=== PATIENT | female | born 1985 | race Caucasian/White ===

== ENCOUNTER 2017-11-23 20:33 | Emergency (ER) | payer OTHER ==
--- NOTE | 2017-11-23 21:57 | ED ---
Dizziness HPI - General Chief Complaint: Dizziness Stated Complaint: Dizzy/fell knee injury Time Seen by Provider: 11/23/17 21:29 Source: patient Mode of arrival: ambulatory Limitations: no limitations - History of Present Illness Initial Comments: This patient is 32-year-old woman who presents to be evaluated for which is describing as dizziness. The symptoms have been going on for well over 2 years. She states that symptoms are intermittent. She has not noticed any correlation with any particular activity. She states that she will feel off balance. She also will have intermittent nausea and vomiting. Patient denies any headache or neurologic symptoms. She states she was seen here about 2 years ago for this and was unable to have a diagnosis for the problem. She has not followed up. MD Complaint: dizziness -: year(s) Timing: intermittent Description: off-balance History of Same: Yes History of Trauma: No Severity: moderate Improves With: nothing Worsens With: nothing Associated Symptoms: denies other symptoms - Related Data Home Medications Medication Instructions Recorded Confirmed Loratadine [Claritin] 10 mg PO DAILY PRN 11/23/17 11/23/17 Allergies Allergy/AdvReac Type Severity Reaction Status Date / Time No Known Allergies Allergy Verified 11/23/17 21:54 Review of Systems ROS Statement: Those systems with pertinent positive or pertinent negative responses have been documented in the HPI. ROS Other: All systems not noted in ROS Statement are negative. Constitutional: Denies: fever, chills, weakness Eyes: Denies: vision change ENT: Denies: ear pain, hearing loss, congestion Respiratory: Denies: cough, dyspnea Cardiovascular: Denies: chest pain, palpitations, dyspnea on exertion, edema, syncope Gastrointestinal: Reports: nausea. Denies: abdominal pain, vomiting, diarrhea, melena, hematochezia Genitourinary: Denies: dysuria, hematuria Musculoskeletal: Denies: back pain Skin: Denies: rash Neurological: Denies: headache, weakness, numbness, abnormal gait Past Medical History Past Medical History: No Reported History History of Any Multi-Drug Resistant Organisms: None Reported Past Surgical History: No Surgical Hx Reported Past Psychological History: No Psychological Hx Reported Smoking Status: Never smoker Past Alcohol Use History: None Reported Past Drug Use History: None Reported General Exam Limitations: no limitations General appearance: alert, in no apparent distress Head exam: Present: atraumatic, normocephalic Eye exam: Present: normal appearance, PERRL, EOMI. Absent: scleral icterus, conjunctival injection, nystagmus ENT exam: Present: normal oropharynx Neck exam: Present: normal inspection Respiratory exam: Present: normal lung sounds bilaterally. Absent: respiratory distress, wheezes, rales, rhonchi, stridor Cardiovascular Exam: Present: regular rate, normal rhythm, normal heart sounds. Absent: systolic murmur, diastolic murmur, rubs, gallop GI/Abdominal exam: Present: soft. Absent: distended, tenderness, guarding, rebound, rigid, mass Extremities exam: Present: normal inspection, normal capillary refill. Absent: pedal edema, calf tenderness Neurological exam: Present: alert, oriented X3, CN II-XII intact. Absent: motor sensory deficit Skin exam: Present: warm, dry, intact, normal color. Absent: rash Course Vital Signs 11/23/17 20:42 Temperature 98.2 F Pulse Rate 88 Respiratory 16 Rate Blood Pressure 133/84 O2 Sat by Pulse 99 Oximetry EKG Findings - EKG Comments: EKG Findings:: Short CT interval - EKG Results: EKG: interpreted by ERMD, sinus rhythm (Rate 81 bpm), normal axis, normal ST/T Medical Decision Making - Lab Data Result diagrams: 11/23/17 23:00 11/23/17 23:00 Lab Results 11/23/17 11/23/17 11/23/17 Range/Units 23:00 23:00 23:20 WBC 10.6 (3.8-10.6) k/uL RBC 4.64 (3.80-5.40) m/uL Hgb 10.9 L (11.4-16.0) gm/dL Hct 35.4 (34.0-46.0) % MCV 76.2 L (80.0-100.0) fL MCH 23.4 L (25.0-35.0) pg MCHC 30.8 L (31.0-37.0) g/dL RDW 15.0 (11.5-15.5) % Plt Count 491 H (150-450) k/uL Neutrophils % 67 % Lymphocytes % 24 % Monocytes % 5 % Eosinophils % 3 % Basophils % 1 % Neutrophils # 7.0 (1.3-7.7) k/uL Lymphocytes # 2.5 (1.0-4.8) k/uL Monocytes # 0.5 (0-1.0) k/uL Eosinophils # 0.3 (0-0.7) k/uL Basophils # 0.1 (0-0.2) k/uL Hypochromasia Moderate Microcytosis Slight Sodium 139 (137-145) mmol/L Potassium 4.8 (3.5-5.1) mmol/L Chloride 105 (98-107) mmol/L Carbon Dioxide 24 (22-30) mmol/L Anion Gap 10 mmol/L BUN 12 (7-17) mg/dL Creatinine 0.59 (0.52-1.04) mg/dL Est GFR (CKD-EPI)AfAm >90 (>60 ml/min/1.73 sqM) Est GFR (CKD-EPI)NonAf >90 (>60 ml/min/1.73 sqM) Glucose 89 (74-99) mg/dL Calcium 9.9 (8.4-10.2) mg/dL Magnesium 1.9 (1.6-2.3) mg/dL Total Bilirubin 0.5 (0.2-1.3) mg/dL AST 30 (14-36) U/L ALT 17 (9-52) U/L Alkaline Phosphatase 66 (38-126) U/L Total Protein 8.1 (6.3-8.2) g/dL Albumin 4.2 (3.5-5.0) g/dL Urine Color Urine Appearance (Clear) Urine pH (5.0-8.0) Ur Specific [place] (1.001-1.035) Urine Protein (Negative) Urine Glucose (UA) (Negative) Urine Ketones (Negative) Urine Blood (Negative) Urine Nitrite (Negative) Urine Bilirubin (Negative) Urine Urobilinogen (<2.0) mg/dL Ur Leukocyte Esterase (Negative) Urine RBC (0-5) /hpf Urine WBC (0-5) /hpf Ur Squamous Epith Cells (0-4) /hpf Urine Bacteria (None) /hpf Urine Mucus (None) /hpf Urine HCG, Qual Not Detected (Not Detectd) 11/23/17 Range/Units 23:20 WBC (3.8-10.6) k/uL RBC (3.80-5.40) m/uL Hgb (11.4-16.0) gm/dL Hct (34.0-46.0) % MCV (80.0-100.0) fL MCH (25.0-35.0) pg MCHC (31.0-37.0) g/dL RDW (11.5-15.5) % Plt Count (150-450) k/uL Neutrophils % % Lymphocytes % % Monocytes % % Eosinophils % % Basophils % % Neutrophils # (1.3-7.7) k/uL Lymphocytes # (1.0-4.8) k/uL Monocytes # (0-1.0) k/uL Eosinophils # (0-0.7) k/uL Basophils # (0-0.2) k/uL Hypochromasia Microcytosis Sodium (137-145) mmol/L Potassium (3.5-5.1) mmol/L Chloride (98-107) mmol/L Carbon Dioxide (22-30) mmol/L Anion Gap mmol/L BUN (7-17) mg/dL Creatinine (0.52-1.04) mg/dL Est GFR (CKD-EPI)AfAm (>60 ml/min/1.73 sqM) Est GFR (CKD-EPI)NonAf (>60 ml/min/1.73 sqM) Glucose (74-99) mg/dL Calcium (8.4-10.2) mg/dL Magnesium (1.6-2.3) mg/dL Total Bilirubin (0.2-1.3) mg/dL AST (14-36) U/L ALT (9-52) U/L Alkaline Phosphatase (38-126) U/L Total Protein (6.3-8.2) g/dL Albumin (3.5-5.0) g/dL Urine Color Light Yellow Urine Appearance Cloudy H (Clear) Urine pH 5.5 (5.0-8.0) Ur Specific [place] 1.008 (1.001-1.035) Urine Protein Negative (Negative) Urine Glucose (UA) Negative (Negative) Urine Ketones Negative (Negative) Urine Blood Negative (Negative) Urine Nitrite Negative (Negative) Urine Bilirubin Negative (Negative) Urine Urobilinogen <2.0 (<2.0) mg/dL Ur Leukocyte Esterase Negative (Negative) Urine RBC 1 (0-5) /hpf Urine WBC 1 (0-5) /hpf Ur Squamous Epith Cells 4 (0-4) /hpf Urine Bacteria Occasional H (None) /hpf Urine Mucus Rare H (None) /hpf Urine HCG, Qual (Not Detectd) Disposition Clinical Impression: Dizziness Disposition: HOME SELF-CARE Condition: Good Instructions: Dizziness (ED) Is patient prescribed a controlled substance at d/c from ED?: No Referrals: None,Stated [Primary Care Provider] - 1-2 days Aida Thornton MD [REFERRING] - 1-2 days
[2017-11-23 23:13] LABS: Basophils # (A) 0.1 k/uL (0-0.2); Basophils % (A) 1 %; Eosinophils # (A) 0.3 k/uL (0-0.7); Eosinophils % (A) 3 %; HCT 35.4 % (34.0-46.0); HGB 10.9 gm/dL (11.4-16.0); Hypochromasia Moderate; Lymphocytes # (A) 2.5 k/uL (1.0-4.8); Lymphocytes % (A) 24 %; MCH 23.4 pg (25.0-35.0); MCHC 30.8 g/dL (31.0-37.0); MCV 76.2 fL (80.0-100.0); Mean Platelet Volume 8.8; Microcytosis Slight; Monocytes # (A) 0.5 k/uL (0-1.0); Monocytes % (A) 5 %; Neutrophils % (A) 67 %; Platelet Count 491 k/uL (150-450); RBC 4.64 m/uL (3.80-5.40); WBC 10.6 k/uL (3.8-10.6)
[2017-11-23 23:39] LABS: Albumin 4.2 g/dL (3.5-5.0); Anion Gap 10 mmol/L; Blood Urea Nitrogen 12 mg/dL (7-17); Calcium 9.9 mg/dL (8.4-10.2); Carbon Dioxide 24 mmol/L (22-30); Chloride 105 mmol/L (98-107); Glucose 89 mg/dL (74-99); Magnesium 1.9 mg/dL (1.6-2.3); Sodium 139 mmol/L (137-145); Total Bilirubin 0.5 mg/dL (0.2-1.3); Total Protein 8.1 g/dL (6.3-8.2)
[2017-11-24 00:01] LABS: ALT 17 U/L (9-52); AST 30 U/L (14-36); Alkaline Phosphatase 66 U/L (38-126); Potassium 4.8 mmol/L (3.5-5.1)
[2017-11-24 00:11] LABS: Appearance,Urine Cloudy (Clear); Bacteria,Urine Occasional /hpf; Bilirubin,Urine Negative (Negative); Blood,Urine Negative (Negative); Color,Urine Light Yellow; Glucose,Urine (UA) Negative (Negative); Ketones,Urine Negative (Negative); Leukocyte Esterase,Urine Negative (Negative); Mucus,Urine Rare /hpf; Nitrite,Urine Negative (Negative); PH, Urine 5.5 (5.0-8.0); Protein,Urine Negative (Negative); RBC,Urine 1 /hpf (0-5); Specific Gravity,Urine 1.008 (1.001-1.035); Squamous Epithelial Cell,Urine 4 /hpf (0-4); Urobilinogen,Urine <2.0 mg/dL (<2.0); WBC,Urine 1 /hpf (0-5)
[2017-11-24 01:58] VITALS: BP 131/92; PULSE 72; RESP 18; TEMP 98.6
== END 2017-11-24 01:52 | disposition home or self-care (01) ==
LOC: EC 20:33
DX: R42 Dizziness and giddiness (principal); R26.89 Other abnormalities of gait and mobility; R11.2 Nausea with vomiting, unspecified
CPT/HCPCS: 36415; 80053; 81001; 81025; 83735; 85025; 93005; 99284

== ENCOUNTER → 2018-08-30 | Outpatient (CLI) | payer OTHER ==
--- NOTE | 2018-08-30 13:44 | MM ---
Reason for exam: clinical finding. History: Family history of breast cancer in mother at age 40. Took hormonal contraceptives beginning at age 17. Physical Findings: Nurse Summary: 1.5cm nodule in the right breast at 11 o'clock (nurse caden). MG Diagnostic Mammo w CAD JORGE Bilateral CC and MLO view(s) were taken. XCCL view(s) were taken of the right breast. The breast tissue is heterogeneously dense. This may lower the sensitivity of mammography. Finding: There is a 30 mm microlobulated oval mass located 8-9 cm from the nipple in the upper outer quadrant, posterior position of the right breast. These results were verbally communicated with the patient and result sheet given to the patient on 08/30/18. ASSESSMENT: Incomplete: need additional imaging evaluation, BI-RAD 0 RECOMMENDATION: Ultrasound of the right breast.
--- NOTE | 2018-08-30 13:47 | USB ---
Reason for exam: additional evaluation requested from abnormal screening. History: Family history of breast cancer in mother at age 40. Took hormonal contraceptives beginning at age 17. US Breast Workup Limited RT Right limited breast ultrasound including focal area of concern, retroareolar and axilla demonstrates a 5 x 4 x 6mm oval, hypoechoic lesion at 10 o'clock, a 23 x 16 x 29cm hypoechoic lesion at 11 o'clock BB for which a biopsy is recommended, a 8 x 5 x 7mm oval, hypochoic lesion at 12 o'clock and a 7 x 2 x 5mm oval, hypoechoic lesion at 12 o'clock. Advise sampling of largest lesion. These results were verbally communicated with the patient and result sheet given to the patient on 08/30/18. ASSESSMENT: Suspicious, BI-RAD 4 RECOMMENDATION: Ultrasound core biopsy of the right breast. Called Dr. Herr with mammographic findings and has scheduled an appointment for the patient for 09/25/18 at 3:[address] Landin. Biopsy scheduled for 09/19/18 at 8:00. PRELIMINARY REPORT CALLED AND FAXED TO DR. LANDIN ON 08/30/18.
== END | disposition home or self-care (01) ==
LOC: RADMAMWWP 10:40
PROVIDERS: ATTEND Family Medicine
DX: N63.10 Unspecified lump in the right breast, unspecified quadrant (principal); Z80.3 Family history of malignant neoplasm of breast
CPT/HCPCS: 77066

== ENCOUNTER → 2018-09-08 | Outpatient (CLI) | payer OTHER ==
[2018-09-08 15:50] VITALS: BP 105/72; PULSE 91; RESP 16; TEMP 98.3; BMI 22.3
--- NOTE | 2018-09-08 16:44 | P.GSHP ---
History of Present Illness H&P Date: 09/08/18 Chief Complaint: ultrasound change in right breast Kenia is a 33-year-old white female who presents for evaluation of a lump in her right breast. She states she noted a lump several months ago and there was some stinging associated with it. She subsequently underwent a bilateral mammogram and ultrasound of the right breast. The bilateral mammogram revealed a 30 mm microlobulated mass at the 8-9 cm from the nipple in the upper outer quadrant of the right breast. Ultrasound of the right breast then revealed several lesions the largest of which was 23 x 16 cm at 11:00. Ultrasound-guided core biopsy was recommended. Patient drinks large amounts of coffee and or soda which is caffeinated, the patient does not smoke and is not exposed to secondhand smoke, she eats chocolate rarely Family history: Mother: cancer of her uterus Hormonal History: menarche: 14 , breast fed:; no, first born at 20 BCP:1 year hormones: none periods regular Surgical history: none Medical History: none Social Hsitory: smoke: none alcohol: none drugs: none - Constitutional Constitutional: Denies chills, Denies fever - EENT Eyes: denies blurred vision, denies pain Ears: deny: decreased hearing, tinnitus Ears, nose, mouth and throat: Denies headache, Denies sore throat - Breasts Breasts: bilateral: as per HPI - Cardiovascular Cardiovascular: Denies chest pain, Denies shortness of breath - Respiratory Respiratory: Denies cough, Denies 7 - Gastrointestinal Gastrointestinal: Denies abdominal pain, Denies diarrhea, Denies nausea, Denies vomiting - Genitourinary (Female) Genitourinary: Denies dysuria, Denies hematuria - Menstruation Menstruation: Reports period normal - Musculoskeletal Musculoskeletal: Denies myalgias - Integumentary Integumentary: Denies pruritus, Denies rash - Neurological Neurological: Denies numbness, Denies weakness - Psychiatric Psychiatric: Denies anxiety, Denies depression - Endocrine Endocrine: Denies fatigue, Denies weight change - Hematologic/Lymphatic Comment: none - Allergic/Immunologic Allergic/Immunologic: Reports seasonal allergies Past Medical History Past Medical History: No Reported History History of Any Multi-Drug Resistant Organisms: None Reported Past Surgical History: No Surgical Hx Reported Past Psychological History: No Psychological Hx Reported Smoking Status: Never smoker Past Alcohol Use History: None Reported Past Drug Use History: None Reported Medications and Allergies Home Medications Medication Instructions Recorded Confirmed Type No Known Home Medications 09/08/18 09/08/18 History Allergies Allergy/AdvReac Type Severity Reaction Status Date / Time No Known Allergies Allergy Verified 09/08/18 15:50 Surgical - Exam Vital Signs Temp Pulse Resp BP Pulse Ox 98.3 F 91 16 105/72 98 09/08/18 15:46 09/08/18 15:46 09/08/18 15:46 09/08/18 15:46 09/08/18 15:46 BMI 22.3 - General well developed, well nourished, no distress - Eyes normal ocular movement - ENT no hearing loss, no congestion - Neck no masses, trachea midline - Respiratory normal respiratory effort, clear to auscultation - Cardiovascular Rhythm: regular Heart Sounds: normal: S1, S2 - Abdomen Abdomen: soft, non tender, no guarding, no rigid, no rebound - Integumentary normal turgor - Neurologic no disoriented, no combative - Musculoskeletal normal gait, normal posture - Psychiatric oriented to time, oriented to person, oriented to place, speech is normal, memory intact breast exam: right breast: Multi-positional exam reveals approximately a 2-1/2 cm nodule in the right lateral breast at approximately 9:00 Date axilla: No adenopathy of concern Left breast: Multi-positional exam fibrocystic changes, no dominant masses or notches of concern Left axilla: No adenopathy of concern Results Mammogram and ultrasound reports reviewed Assessment and Plan Assessment: Impression: 1. Abnormal mammogram right breast 2. Abnormal ultrasound right breast 3. Palpable mass right breast 4. Fibrocystic breast changes 5. Family history of cancer Plan: 1. Core biopsy ultrasound abnormality right breast 2. Follow-up after core biopsy Cc: Dr. Hunter
== END ==
LOC: WWCWWP 15:40
PROVIDERS: ATTEND Surgery
DX: Z53.9 Procedure and treatment not carried out, unspecified reason (principal)

== ENCOUNTER → 2018-09-19 | Day surgery (SDC) | payer OTHER ==
[2018-09-19 07:27] VITALS: RESP 16; BMI 24.3
[2018-09-19 08:32] VITALS: BP 116/82; PULSE 70; TEMP 97.9
--- NOTE | 2018-09-19 09:01 | USB ---
EXAMINATION TYPE: US biopsy breast VAD RT DATE OF EXAM: 09/19/2018 CLINICAL HISTORY: R92.8 Abnormal Mammogram. TECHNIQUE: Ultrasound guided core biopsy of right breast palpable abnormality at 11:00 position. COMPARISON: Exams dated 08/30/2018 FINDINGS: The procedure of ultrasound guided core biopsy was explained to the patient. Benefits, alt ernatives, and risks were discussed. An informed consent was then obtained. Preprocedural timeout w as performed. The patient was placed in supine positioning for imaging and for the procedure. The overlying skin w as prepped and draped in usual sterile fashion. 10 cc of 1% lidocaine was used as anesthetic into the skin and subcutaneous tissue up to a palpable 2.3 x 1.6 x 2.9 cm mass at the 11:00 position in the r ight breast. Under ultrasound guidance, a 12-gauge vacuum assisted biopsy gun device was used to obtain 5 core anny ples. Following this, a ribbon-shaped biopsy marker was left in mass. No postprocedural mammogram wa s utilized in this patient as the biopsy marker was seen on real-time imaging placed within the biops ied mass at the 11:00 position in the right breast. The patient tolerated the procedure well without any immediate complication. The patient was kept in the radiology department for short stay after the procedure and then discharged home in stable condi tion. IMPRESSION: Successful, uncomplicated ultrasound guided core biopsy of a palpable 2.3 x 1.6 x 2.9 cm mass at the 11:00 position in the right breast, full pathology results to follow. Of note there are 3 other smaller masses seen on the prior ultrasound of 08/30/2018 for which recommendation will be made on radiologic/pathologic correlation. The remaining masses are subcentimeter.
== END | disposition home or self-care (01) ==
LOC: RADUSWWP 06:46
PROVIDERS: ATTEND Surgery
DX: D24.1 Benign neoplasm of right breast (principal)
CPT/HCPCS: 88305; 19083; A4648; J2001

== ENCOUNTER → 2018-09-25 | Outpatient (CLI) | payer OTHER ==
[2018-09-25 16:11] VITALS: BP 105/73; PULSE 90; RESP 16; TEMP 98.3; BMI 24.5
--- NOTE | 2018-09-25 16:36 | P.PN ---
Subjective Progress Note Date: 09/25/18 Kenia is a 33-year-old white female who presents for evaluation of a lump in her right breast. She states she noted a lump several months ago and there was some stinging associated with it. She subsequently underwent a bilateral mammogram and ultrasound of the right breast. The bilateral mammogram revealed a 30 mm microlobulated mass at the 8-9 cm from the nipple in the upper outer quadrant of the right breast. Ultrasound of the right breast then revealed several lesions the largest of which was 2.3 x 1.6 cm at 11:00. Ultrasound- guided core biopsy was recommended. Pathology was consistent with a Patient drinks large amounts of coffee and or soda which is caffeinated, the patient does not smoke and is not exposed to secondhand smoke, she eats chocolate rarely Family history: Mother: cancer of her uterus Hormonal History: menarche: 14 , breast fed:; no, first born at 20 BCP:1 year hormones: none periods regular Surgical history: none Medical History: none Social Hsitory: smoke: none alcohol: none drugs: none - Constitutional Constitutional: Denies chills, Denies fever - EENT Eyes: denies blurred vision, denies pain Ears: deny: decreased hearing, tinnitus Ears, nose, mouth and throat: Denies headache, Denies sore throat - Breasts Breasts: bilateral: as per HPI - Cardiovascular Cardiovascular: Denies chest pain, Denies shortness of breath - Respiratory Respiratory: Denies cough, Denies 7 - Gastrointestinal Gastrointestinal: Denies abdominal pain, Denies diarrhea, Denies nausea, Denies vomiting - Genitourinary (Female) Genitourinary: Denies dysuria, Denies hematuria - Menstruation Menstruation: Reports period normal - Musculoskeletal Musculoskeletal: Denies myalgias - Integumentary Integumentary: Denies pruritus, Denies rash - Neurological Neurological: Denies numbness, Denies weakness - Psychiatric Psychiatric: Denies anxiety, Denies depression - Endocrine Endocrine: Denies fatigue, Denies weight change - Hematologic/Lymphatic Comment: none - Allergic/Immunologic Allergic/Immunologic: Reports seasonal allergies Past Medical History Past Medical History: No Reported History History of Any Multi-Drug Resistant Organisms: None Reported Past Surgical History: No Surgical Hx Reported Past Psychological History: No Psychological Hx Reported Smoking Status: Never smoker Past Alcohol Use History: None Reported Past Drug Use History: None Reported Objective - Vital Signs Vital signs: Vital Signs Temp 98.3 F 09/25/18 15:58 Pulse 90 09/25/18 15:58 Resp 16 09/25/18 15:58 BP 105/73 09/25/18 15:58 Pulse Ox 100 09/25/18 15:58 Intake & Output 09/24/18 09/25/18 09/25/18 18:59 06:59 18:59 Weight 64.864 kg - Constitutional General appearance: Present: average body habitus - EENT Eyes: Present: EOMI ENT: Present: hearing grossly normal - Neck Neck: Present: normal ROM - Respiratory Respiratory: bilateral: CTA - Cardiovascular Rhythm: regular Heart sounds: normal: S1, S2 - Integumentary Integumentary: Present: normal turgor - Musculoskeletal Musculoskeletal: Present: gait normal - Psychiatric Psychiatric: Present: A&O x's 3, appropriate affect, intact judgment & insight - Additional findings Additional findings: Breast biopsy site: No evidence of infection Assessment and Plan Assessment: Impression: 1. 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 Abnormal mammogram and ultrasound of the right breast 3. Mother history of uterine cancer Plan: 1. Excisional biopsy of palpable lesion in the right breast Risk and benefits of procedure discussed with the patient in the supra be scheduled in the near future she wishes to proceed. Cc: Dr. Hunter
== END | disposition home or self-care (01) ==
LOC: WWCWWP 15:33
PROVIDERS: ATTEND Surgery
DX: Z53.9 Procedure and treatment not carried out, unspecified reason (principal)

== ENCOUNTER → 2018-10-26 | Outpatient (CLI) | payer OTHER ==
[2018-10-26 14:56] VITALS: BP 131/85; PULSE 77; RESP 18; TEMP 97.7; BMI 24.0
--- NOTE | 2018-10-26 15:15 | P.PN ---
Subjective Progress Note Date: 10/26/18 Principal diagnosis: mass right breast Kenia is a 33-year-old white female who presents for evaluation of a lump in her right breast. She states she noted a lump several months ago and there was some stinging associated with it. She subsequently underwent a bilateral mammogram and ultrasound of the right breast. The bilateral mammogram revealed a 30 mm microlobulated mass at the 8-9 cm from the nipple in the upper outer quadrant of the right breast. Ultrasound of the right breast then revealed several lesions the largest of which was 23 x 16 cm at 11:00. Ultrasound-guided core biopsy was recommended. Patient drinks large amounts of coffee and or soda which is caffeinated, the patient does not smoke and is not exposed to secondhand smoke, she eats chocolate rarely. An ultrasound core biopsy was done on 09-19-18. Pathology was benign fibroepithelial lesion. The patient states the area is growing. It is also painful at times. Family history: Mother: cancer of her uterus Hormonal History: menarche: 14 , breast fed:; no, first born at 20 BCP:1 year hormones: none periods regular Surgical history: none Medical History: none Social History: smoke: none alcohol: none drugs: none - Constitutional Constitutional: Denies chills, Denies fever - EENT Eyes: denies blurred vision, denies pain Ears: deny: decreased hearing, tinnitus Ears, nose, mouth and throat: Denies headache, Denies sore throat - Breasts Breasts: bilateral: as per HPI - Cardiovascular Cardiovascular: Denies chest pain, Denies shortness of breath - Respiratory Respiratory: Denies cough, - Gastrointestinal Gastrointestinal: Denies abdominal pain, Denies diarrhea, Denies nausea, Denies vomiting - Genitourinary (Female) Genitourinary: Denies dysuria, Denies hematuria - Menstruation Menstruation: Reports period normal - Musculoskeletal Musculoskeletal: Denies myalgias - Integumentary Integumentary: Denies pruritus, Denies rash - Neurological Neurological: Denies numbness, Denies weakness - Psychiatric Psychiatric: Denies anxiety, Denies depression - Endocrine Endocrine: Denies fatigue, Denies weight change - Hematologic/Lymphatic Comment: none - Allergic/Immunologic Allergic/Immunologic: Reports seasonal allergies Past Medical History Past Medical History: No Reported History History of Any Multi-Drug Resistant Organisms: None Reported Past Surgical History: No Surgical Hx Reported Past Psychological History: No Psychological Hx Reported Smoking Status: Never smoker Past Alcohol Use History: None Reported Past Drug Use History: None Reported Objective - Vital Signs Vital signs: Vital Signs Temp 97.7 F 10/26/18 14:52 Pulse 77 10/26/18 14:52 Resp 18 10/26/18 14:52 BP 131/85 10/26/18 14:52 Pulse Ox 99 10/26/18 14:52 Intake & Output 10/25/18 10/26/18 10/26/18 18:59 06:59 18:59 Weight 63.503 kg - Exam BMI 24 - Constitutional General appearance: Present: average body habitus - EENT Eyes: Present: EOMI ENT: Present: hearing grossly normal - Neck Neck: Present: normal ROM - Respiratory Respiratory: bilateral: CTA - Cardiovascular Rhythm: regular Heart sounds: normal: S1, S2 - Gastrointestinal General gastrointestinal: Present: soft - Integumentary Integumentary: Present: normal turgor - Musculoskeletal Musculoskeletal: Present: gait normal - Psychiatric Psychiatric: Present: A&O x's 3, appropriate affect, intact judgment & insight - Additional findings Additional findings: Right breast: Multi-positional exam a 3 cm nodule in the upper outer quadrant area, fibrocystic changes, no other dominant masses or nodules of concern particularly attention paid to the 12 o'clock position and no discrete mass noted Right axilla: No adenopathy of concern Left breast: Multi-positional exam on prior exam no dominant masses or nodules of concern Left axilla: No adenopathy of concern Assessment and Plan Assessment: Impression: 1. Mammographic abnormality right breast 2. Ultrasound abnormality right breast 3. Growing palpable mass right breast 4. Fibroepithelial lesion on core biopsy. 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 The patient's ultrasound was reviewed with Dr. Stewart. Although there are several other smaller lesions that do not appear worrisome in the right breast and the recommendation was to follow these radiographically. Depending on the results of the right breast excisional biopsy we may consider further workup of these. Plan: 1. Excision of palpable mass in the operating room and the right breast 2. Medical management of medical problems 3. Six-month ultrasound follow-up additional lesions in the right breast. Risks and benefits of the procedure were discussed with the patient and she wishes to proceed. Cc:Nemesio
== END | disposition home or self-care (01) ==
LOC: WWCWWP 14:44
PROVIDERS: ATTEND Surgery
DX: Z53.9 Procedure and treatment not carried out, unspecified reason (principal)

== ENCOUNTER 2018-10-31 13:42 | Day surgery (SDC) | payer OTHER ==
[2018-10-27 15:52] VITALS: BMI 24.3
[~2018-10-31 13:42] MED LIST: DEXAMETHASONE SOD PHOSPHATE 10 MG/ML 1 ML VIAL IV ONE; HEPARIN SODIUM,PORCINE 5,000 UNIT/ML 1 ML VIAL SQ ONE; HYDROmorphone 0.5 MG/0.5 ML SYRINGE IVP PRN; LACTATED RINGERS 1,000 ML IV SCH; LIDOCAINE 1% 20 ML VIAL (10MG/ML) FOR IV START INTRADERMA PRN; MIDAZOLAM 2 MG/2 ML VIAL IV PRN; ONDANSETRON 4 MG/2 ML VIAL IVP ONE; SCOPOLAMINE 1.5MG/72HR PATCH TRANSDERM ONE
[2018-10-31 14:15] VITALS: BP 119/76; PULSE 88; RESP 20; TEMP 97.7
== END 2018-10-31 13:51 | disposition home or self-care (01) ==
LOC: OR 13:42
PROVIDERS: ATTEND Surgery
DX: Z53.9 Procedure and treatment not carried out, unspecified reason (principal)

== ENCOUNTER 2018-11-07 13:52 | Day surgery (SDC) | payer OTHER ==
[2018-11-07] MEDS ORDERED: HYDROmorphone 0.5 MG/0.5 ML SYRINGE IVP PRN (14:09)
[2018-11-07] MEDS ORDERED: MIDAZOLAM 2 MG/2 ML VIAL IV PRN (14:09)
[2018-11-07] MEDS ORDERED: LIDOCAINE 1% 20 ML VIAL (10MG/ML) FOR IV START INTRADERMA PRN (14:09)
[2018-11-07] MEDS ORDERED: SCOPOLAMINE 1.5MG/72HR PATCH TRANSDERM ONE (14:09)
[2018-11-07] MEDS ORDERED: LACTATED RINGERS 1,000 ML IV SCH (14:09)
[2018-11-07] MEDS ORDERED: DEXAMETHASONE SOD PHOSPHATE 10 MG/ML 1 ML VIAL IV ONE (14:09)
[2018-11-07] MEDS ORDERED: ONDANSETRON 4 MG/2 ML VIAL IVP ONE (14:09)
[2018-11-07] MEDS ORDERED: SODIUM CHLORIDE 0.9% 100 ML with ceFAZolin 2,000 MG IV ONE ×2 (16:06)
[2018-11-07] MEDS ORDERED: LIDOCAINE 1% INJ 10MG/ML (20 ML MDV) SQ ONE ×2 (16:28)
[2018-11-07 17:02] VITALS: TEMP 96.8
[2018-11-07 17:42] VITALS: RESP 16
[2018-11-07 17:52] VITALS: BP 127/84; PULSE 81
--- NOTE | 2018-11-08 12:24 | P.OP ---
Date of Procedure: 11/07/18 Preoperative Diagnosis: Mass/fibroadenoma upper outer quadrant right breast Postoperative Diagnosis: Same Procedure(s) Performed: Excision of palpable mass upper outer quadrant right breast Anesthesia: INDRA Surgeon: Samanta Landin Estimated Blood Loss (ml): 3 IV fluids (ml): 400 Pathology: other (Breast mass) Condition: stable Disposition: same day Indications for Procedure: Enlarging mass right breast palpable/pain at times Operative Findings: Mass right breast upper outer quadrant 5 x 4 cm Description of Procedure: Kenia is a 33-year-old white female who presented with a palpable mass in the right breast. This is biopsy-proven fibroadenoma however it is enlarging and uncomfortable for the patient. She is therefore opted for surgical excision. The patient was taken to the operating room following induction of anesthesia the right breast was prepped and draped in a sterile fashion. An incision was made over the area of palpable abnormality and carried down through the breast tissue to the area of the lesion. Wide excision was performed. The lesion was approximately 5 x 4 cm in size, it appeared to be multilobulated. After this had been excised the wound was well irrigated. Hemostasis was attained using electrocautery device. The deep tissues were closed using 3-0 Vicryl suture. The skin was closed using 4-0 Vicryl suture and a 4-0 Monocryl. The patient tolerated the procedure in stable condition. The specimen was sent to pathology.
--- NOTE | 2018-11-08 12:26 | P.DS ---
Providers Attending physician: Samanta Landin Primary care physician: Stated None Patient Condition at Discharge: Stable Plan - Discharge Summary Discharge Rx Participant: No New Discharge Prescriptions: No Action No Known Home Medications Discharge Medication List No Known Home Medications 09/08/18 [History] Follow up Appointment(s)/Referral(s): Samanta Landin MD [STAFF PHYSICIAN] - 1 Week (please call office for follow up date/time.) Patient Instructions/Handouts: *Surgery [facility] - (Anesthesia) Discharge Instructions Outpatient Surgery, Surgical Breast Biopsy (DC) Activity/Diet/Wound Care/Special Instructions: Do not drive for 24 hours after surgery. Remove Dressing in 48 hours and then you may shower. Wear surgical bra at all times. Follow up with Dr. Landin in 1 week. Discharge Disposition: HOME SELF-CARE
== END 2018-11-07 18:09 | disposition home or self-care (01) ==
LOC: OR 13:52 → EDSTATUS 15:10 → OR 18:09
PROVIDERS: ATTEND Surgery
DX: D24.1 Benign neoplasm of right breast (principal); Z85.42 Personal history of malignant neoplasm of other parts of uterus; Z87.891 Personal history of nicotine dependence
CPT/HCPCS: 81025; 88305; 19301; J1100; J2405; J0690; J2001

== ENCOUNTER 2019-09-20 19:31 | Emergency (ER) | payer OTHER ==
[2019-09-20] MEDS ORDERED: SODIUM CHLORIDE 0.9% 1,000 ML IV STA (19:58)
[2019-09-20 20:57] LABS: Anisocytosis Slight; Basophils # (A) 0.1 k/uL (0-0.2); Basophils % (A) 0 %; Eosinophils # (A) 0.2 k/uL (0-0.7); Eosinophils % (A) 1 %; HGB 12.7 gm/dL (11.4-16.0); Hypochromasia Slight; Lymphocytes # (A) 1.4 k/uL (1.0-4.8); Lymphocytes % (A) 9 %; MCH 24.3 pg (25.0-35.0); MCHC 31.7 g/dL (31.0-37.0); MCV 76.6 fL (80.0-100.0); Mean Platelet Volume 7.5; Microcytosis Moderate; Monocytes # (A) 0.6 k/uL (0-1.0); Monocytes % (A) 4 %; Neutrophils # (A) 13.4 k/uL (1.3-7.7); Neutrophils % (A) 86 %; Platelet Count 422 k/uL (150-450); RBC 5.22 m/uL (3.80-5.40); RDW 19.5 % (11.5-15.5); WBC 15.7 k/uL (3.8-10.6)
[2019-09-20 21:06] LABS: ALT 11 U/L (4-34); AST 18 U/L (14-36); African American GFR (CKD) >90 (>60 ml/min/1.73 sqM); Albumin 3.8 g/dL (3.5-5.0); Alkaline Phosphatase 81 U/L (38-126); Amylase 49 U/L (30-110); Anion Gap 8 mmol/L; Blood Urea Nitrogen 5 mg/dL (7-17); Calcium 8.9 mg/dL (8.4-10.2); Carbon Dioxide 20 mmol/L (22-30); Chloride 109 mmol/L (98-107); Glucose 138 mg/dL (74-99); Non-African American GFR(CKD) >90 (>60 ml/min/1.73 sqM); Potassium 3.8 mmol/L (3.5-5.1); Sodium 137 mmol/L (137-145); Total Bilirubin 0.3 mg/dL (0.2-1.3); Total Protein 7.4 g/dL (6.3-8.2)
[2019-09-20 21:52] LABS: Appearance,Urine Clear (Clear); Bacteria,Urine Rare /hpf; Bilirubin,Urine Negative (Negative); Blood,Urine Large (Negative); Color,Urine Yellow; Glucose,Urine (UA) Negative (Negative); Hyaline Casts,Urine 21 /lpf (0-2); Ketones,Urine Negative (Negative); Leukocyte Esterase,Urine Trace (Negative); Mucus,Urine Rare /hpf; Nitrite,Urine Negative (Negative); PH, Urine 5.5 (5.0-8.0); Protein,Urine Trace (Negative); RBC,Urine >182 /hpf (0-5); Specific Gravity,Urine 1.016 (1.001-1.035); Squamous Epithelial Cell,Urine 1 /hpf (0-4); Urobilinogen,Urine <2.0 mg/dL (<2.0); WBC,Urine 16 /hpf (0-5)
--- NOTE | 2019-09-20 22:27 | US ---
EXAMINATION TYPE: US pelvis comp w/tv w/doppler DATE OF EXAM: 09/20/2019 COMPARISON: CT CLINICAL HISTORY: Heavy bleeding, passed tissue, on BC. Heavy bleeding x 1 day. Patient claims she passed a large clot. Patient on control. . TECHNIQUE: Transvaginal (TV). Transabdominal sonographic images of the pelvis were acquired. Transvaginal sonographic images were medically necessary to better assess the following anatomy: ovaries, endometrium. *Patient requested to try the transabdominal exam first. Date of LMP: 09/20/2019 EXAM MEASUREMENTS: Uterus: 8.5 x 6.6 x 4.8 cm Endometrial Stripe: 0.45 cm Right Ovary: 3.5 x 2.0 x 2.1 cm Left Ovary: 3.2 x 1.1 x 1.7 cm 1. Uterus: Retroverted Appears slightly heterogeneous. Slightly hypoechoic area seen fundally measurin.4 x 1.8 x 1.7 cm. Hypoechoic area seen uterus left measurin.1 x 1.2 x 1.0 cm. This area is posterior. 2. Endometrium: Measures 0.45 cm. Anechoic area seen measurin.9 x 0.9 x 0.1 cm. 3. Right Ovary: Measures upper limits of normal. Anechoic areas seen. Largest measures: 1.0 x 0.7 x 0.6 cm. 4. Left Ovary: Hypoechoic area seen measurin.1 x 0.9 x 0.8 cm. Spectral, color and waveform doppler imaging shows arterial and venous flow within the ovaries. 5. Bilateral Adnexa: Appear wnl 6. Posterior cul-de-sac: Appears to be wnl. IMPRESSION: No evidence of ovarian torsion. No solid adnexal mass or free fluid. Normal uterus. MTDD
--- NOTE | 2019-09-20 22:57 | ED ---
General Adult HPI - General Chief complaint: Vaginal Bleeding Stated complaint: vag bleeding Time Seen by Provider: 09/20/19 19:42 Source: patient, EMS Mode of arrival: EMS Limitations: no limitations - History of Present Illness Initial comments: 34-year-old female patient presents to the emergency department today for evaluation of heavy vaginal bleeding for the last 3 hours. Patient became concerned when she passed a small piece of what appeared to be history of tissue. She is concerned bceause her mother has history of uterine cancer diagnosed in her 20s. She denies fever or chills. Denies hematuria, dysuria, urinary frequency, urinary urgency. She has been taking a new control for the last 3-1/2 weeks. She is currently on her placebo week. Patient does not have a wig maker but has been attempting to establish care with one. Patient denies any recent rash, fever, chills, cough, shortness of breath, chest pain, abdominal pain, nausea, vomiting, diarrhea, constipation, back pain, numbness, tingling, dizziness, weakness, hematuria, dysuria, urinary urgency, urinary frequency, headache, visual changes, or any other complaints. - Related Data Home Medications Medication Instructions Recorded Confirmed Apri 0.15-0.03 1 tab PO DAILY 09/20/19 09/20/19 Ergocalciferol [Vitamin D2] 50,000 unit PO Q30D 09/20/19 09/20/19 Ferrous Sulfate [Feosol] 325 mg PO TID 09/20/19 09/20/19 Folic Acid 1 mg PO DAILY 09/20/19 09/20/19 Allergies Allergy/AdvReac Type Severity Reaction Status Date / Time No Known Allergies Allergy Verified 09/20/19 21:49 Review of Systems ROS Statement: Those systems with pertinent positive or pertinent negative responses have been documented in the HPI. ROS Other: All systems not noted in ROS Statement are negative. Past Medical History Past Medical History: No Reported History History of Any Multi-Drug Resistant Organisms: None Reported Past Surgical History: No Surgical Hx Reported Additional Past Surgical History / Comment(s): benign tumor removed right breast Past Anesthesia/Blood Transfusion Reactions: No Reported Reaction Past Psychological History: No Psychological Hx Reported Smoking Status: Former smoker Past Alcohol Use History: Rare Past Drug Use History: None Reported General Exam Limitations: no limitations General appearance: alert, in no apparent distress, other (this is a well- developed, well-nourished adult female patient in no acute distress.) Respiratory exam: Present: normal lung sounds bilaterally. Absent: respiratory distress, wheezes, rales, rhonchi, stridor Cardiovascular Exam: Present: regular rate, normal rhythm, normal heart sounds. Absent: systolic murmur, diastolic murmur, rubs, gallop, clicks GI/Abdominal exam: Present: soft, normal bowel sounds. Absent: distended, tenderness, guarding, rebound, rigid Neurological exam: Present: alert, oriented X3, CN II-XII intact Psychiatric exam: Present: normal affect, normal mood Skin exam: Present: warm, dry, intact, normal color. Absent: rash Course Vital Signs 09/20/19 09/20/19 19:32 23:04 Temperature 98.5 F 98.3 F Pulse Rate 109 H 85 Respiratory 18 16 Rate Blood Pressure 139/106 121/90 O2 Sat by Pulse 96 98 Oximetry Medical Decision Making - Medical Decision Making 34-year-old female patient presents to the emergency department today for evaluation of heavy vaginal bleeding for the last 3 hours. She did pass a piece of tissue and did bring it in for evaluation. This was a flesh-colored clump of tissue which we did send down for cytology, results will be sent to Dr. Melanie larios.ultrasound was obtained and showed normal uterus and ovaries. Labs reviewed and are relatively unremarkable. There is elevated white blood cell, patient is afebrile no signs of infection. We will discharge home to follow-up with her primary care physician for recheck in 1-2 days. She was recommended to [facility], we did have her follow-up with Chucky Waldokaycee she [facility] without [facility]. Patient is hoping to have a female provider. Return parameters were discussed in detail. She verbalizes understanding and agrees with this plan. - Lab Data Result diagrams: 09/20/19 20:37 09/20/19 20:37 Lab Results 09/20/19 09/20/19 09/20/19 Range/Units 20:37 20:37 21:37 WBC 15.7 H (3.8-10.6) k/uL RBC 5.22 (3.80-5.40) m/uL Hgb 12.7 (11.4-16.0) gm/dL Hct 40.0 (34.0-46.0) % MCV 76.6 L (80.0-100.0) fL MCH 24.3 L (25.0-35.0) pg MCHC 31.7 (31.0-37.0) g/dL RDW 19.5 H (11.5-15.5) % Plt Count 422 (150-450) k/uL Neutrophils % 86 % Lymphocytes % 9 % Monocytes % 4 % Eosinophils % 1 % Basophils % 0 % Neutrophils # 13.4 H (1.3-7.7) k/uL Lymphocytes # 1.4 (1.0-4.8) k/uL Monocytes # 0.6 (0-1.0) k/uL Eosinophils # 0.2 (0-0.7) k/uL Basophils # 0.1 (0-0.2) k/uL Hypochromasia Slight Anisocytosis Slight Microcytosis Moderate Sodium 137 (137-145) mmol/L Potassium 3.8 (3.5-5.1) mmol/L Chloride 109 H (98-107) mmol/L Carbon Dioxide 20 L (22-30) mmol/L Anion Gap 8 mmol/L BUN 5 L (7-17) mg/dL Creatinine 0.71 (0.52-1.04) mg/dL Est GFR (CKD-EPI)AfAm >90 (>60 ml/min/1.73 sqM) Est GFR (CKD-EPI)NonAf >90 (>60 ml/min/1.73 sqM) Glucose 138 H (74-99) mg/dL Calcium 8.9 (8.4-10.2) mg/dL Total Bilirubin 0.3 (0.2-1.3) mg/dL AST 18 (14-36) U/L ALT 11 (4-34) U/L Alkaline Phosphatase 81 (38-126) U/L Total Protein 7.4 (6.3-8.2) g/dL Albumin 3.8 (3.5-5.0) g/dL Amylase 49 (30-110) U/L Lipase 69 (23-300) U/L Urine Color Yellow Urine Appearance Clear (Clear) Urine pH 5.5 (5.0-8.0) Ur Specific Dows 1.016 (1.001-1.035) Urine Protein Trace H (Negative) Urine Glucose (UA) Negative (Negative) Urine Ketones Negative (Negative) Urine Blood Large H (Negative) Urine Nitrite Negative (Negative) Urine Bilirubin Negative (Negative) Urine Urobilinogen <2.0 (<2.0) mg/dL Ur Leukocyte Esterase Trace H (Negative) Urine RBC >182 H (0-5) /hpf Urine WBC 16 H (0-5) /hpf Ur Squamous Epith Cells 1 (0-4) /hpf Urine Bacteria Rare H (None) /hpf Hyaline Casts 21 H (0-2) /lpf Urine Mucus Rare H (None) /hpf Urine HCG, Qual (Not Detectd) 09/20/19 Range/Units 21:37 WBC (3.8-10.6) k/uL RBC (3.80-5.40) m/uL Hgb (11.4-16.0) gm/dL Hct (34.0-46.0) % MCV (80.0-100.0) fL MCH (25.0-35.0) pg MCHC (31.0-37.0) g/dL RDW (11.5-15.5) % Plt Count (150-450) k/uL Neutrophils % % Lymphocytes % % Monocytes % % Eosinophils % % Basophils % % Neutrophils # (1.3-7.7) k/uL Lymphocytes # (1.0-4.8) k/uL Monocytes # (0-1.0) k/uL Eosinophils # (0-0.7) k/uL Basophils # (0-0.2) k/uL Hypochromasia Anisocytosis Microcytosis Sodium (137-145) mmol/L Potassium (3.5-5.1) mmol/L Chloride (98-107) mmol/L Carbon Dioxide (22-30) mmol/L Anion Gap mmol/L BUN (7-17) mg/dL Creatinine (0.52-1.04) mg/dL Est GFR (CKD-EPI)AfAm (>60 ml/min/1.73 sqM) Est GFR (CKD-EPI)NonAf (>60 ml/min/1.73 sqM) Glucose (74-99) mg/dL Calcium (8.4-10.2) mg/dL Total Bilirubin (0.2-1.3) mg/dL AST (14-36) U/L ALT (4-34) U/L Alkaline Phosphatase (38-126) U/L Total Protein (6.3-8.2) g/dL Albumin (3.5-5.0) g/dL Amylase (30-110) U/L Lipase (23-300) U/L Urine Color Urine Appearance (Clear) Urine pH (5.0-8.0) Ur Specific Dows (1.001-1.035) Urine Protein (Negative) Urine Glucose (UA) (Negative) Urine Ketones (Negative) Urine Blood (Negative) Urine Nitrite (Negative) Urine Bilirubin (Negative) Urine Urobilinogen (<2.0) mg/dL Ur Leukocyte Esterase (Negative) Urine RBC (0-5) /hpf Urine WBC (0-5) /hpf Ur Squamous Epith Cells (0-4) /hpf Urine Bacteria (None) /hpf Hyaline Casts (0-2) /lpf Urine Mucus (None) /hpf Urine HCG, Qual Not Detected (Not Detectd) - Radiology Data Radiology results: report reviewed Ultrasound of the pelvis was obtained. Report is reviewed in its entirety. Impression by Dr. Jimenez shows no evidence of ovarian torsion. No solid adnexal mass or free fluid. Normal uterus. Disposition Clinical Impression: Vaginal bleeding Disposition: HOME SELF-CARE Condition: Good Instructions (If sedation given, give patient instructions): Dysfunctional Uterine Bleeding (ED) Additional Instructions: Follow-up with gynecology for further evaluation since possible. Await results on your specimen. Return to the emergency department immediately for any new, worsening, or concerning symptoms. Is patient prescribed a controlled substance at d/c from ED?: No Referrals: Héctor Herr MD [Primary Care Provider] - 1-2 days Rochelle Brown DO [Doctor of Osteopathic Medicine] - 1-2 days Time of Disposition: 22:57
[2019-09-20 23:07] VITALS: BP 121/90; PULSE 85; RESP 16; TEMP 98.3
== END 2019-09-20 23:13 | disposition home or self-care (01) ==
LOC: EC 19:31
DX: N93.9 Abnormal uterine and vaginal bleeding, unspecified (principal); Z87.891 Personal history of nicotine dependence
CPT/HCPCS: 36415; 76830; 76856; 76857; 80053; 81001; 81025; 82150; 83690; 85025; 87086; 93976; 96360; 96361; 99285

== ENCOUNTER 2021-02-22 14:59 | Emergency (ER) | payer OTHER ==
--- NOTE | 2021-02-22 16:38 | ED ---
General Adult HPI - General Chief complaint: Skin/Abscess/Foreign Body Stated complaint: Covid+,ZEYNEP,Rash Time Seen by Provider: 02/22/21 16:19 Source: patient, RN notes reviewed Mode of arrival: ambulatory Limitations: no limitations - History of Present Illness Initial comments: 35-year-old female presents to the emergency department for evaluation of widespread rash. Patient states she was diagnosed with Covid on Tuesday and has had onset of rash since Tuesday. Describes rash as mildly itchy; has not taken anything to treat her symptoms prior to arrival. Also complains of congested cough that worsens when lying supine. States she feels short of breath with coughing, though no difficulty breathing at rest or with activity. Denies fever, chills, headache, dizziness, chest pain, abdominal pain, nausea, vomiting, diarrhea, or dysuria. - Related Data Home Medications Medication Instructions Recorded Confirmed Apri 0.15-0.03 1 tab PO DAILY 09/20/19 09/20/19 Ergocalciferol [Vitamin D2] 50,000 unit PO Q30D 09/20/19 09/20/19 Ferrous Sulfate [Feosol] 325 mg PO TID 09/20/19 09/20/19 Folic Acid 1 mg PO DAILY 09/20/19 09/20/19 Previous Rx's Medication Instructions Recorded predniSONE 50 mg PO DAILY #4 tab 02/22/21 Allergies Allergy/AdvReac Type Severity Reaction Status Date / Time No Known Allergies Allergy Verified 02/22/21 15:38 Review of Systems ROS Statement: Those systems with pertinent positive or pertinent negative responses have been documented in the HPI. ROS Other: All systems not noted in ROS Statement are negative. Past Medical History Past Medical History: No Reported History History of Any Multi-Drug Resistant Organisms: None Reported Past Surgical History: No Surgical Hx Reported Additional Past Surgical History / Comment(s): benign tumor removed right breast Past Anesthesia/Blood Transfusion Reactions: No Reported Reaction Past Psychological History: No Psychological Hx Reported Smoking Status: Former smoker Past Alcohol Use History: Rare Past Drug Use History: None Reported General Exam Limitations: no limitations (Well-developed, well-nourished female in no acute distress. Initial temperature 98.3, pulse 100, respirations 18, blood pressure 132/89, pulse ox 97% on room air.) General appearance: alert, in no apparent distress ENT exam: Present: normal exam, normal oropharynx, mucous membranes moist, TM's normal bilaterally Neck exam: Present: normal inspection. Absent: tenderness, meningismus, lymphadenopathy Respiratory exam: Present: normal lung sounds bilaterally. Absent: respiratory distress, wheezes, rales, rhonchi, stridor, chest wall tenderness Cardiovascular Exam: Present: regular rate, normal rhythm, normal heart sounds. Absent: systolic murmur, diastolic murmur, rubs, gallop, clicks GI/Abdominal exam: Present: soft, normal bowel sounds. Absent: distended, tenderness, guarding, rebound, rigid Neurological exam: Present: alert, oriented X3, CN II-XII intact Psychiatric exam: Present: normal affect, normal mood Skin exam: Present: warm, dry, intact, other (no bleeding or open sores) Expanded Type of lesion: Present: rash Distribution of rash: other (Bilateral antecubital fossas, lateral aspects of the trunk, bilateral groins, and bilateral lower extremities behind the knees) Description of rash: Present: petechial (Discrete pinpoint petechial rash; not coalescing) Course Vital Signs 02/22/21 02/22/21 02/22/21 15:31 17:36 18:43 Temperature 98.3 F 98.2 F 98.2 F Pulse Rate 100 84 84 Respiratory 18 20 20 Rate Blood Pressure 132/89 111/75 111/75 O2 Sat by Pulse 97 98 98 Oximetry Medical Decision Making - Medical Decision Making 35-year-old female presents to the emergency department for evaluation of rash that began after she was diagnosed with COVID this past week. Upon exam, patient is well appearing and in no acute distress. Vital signs are stable. Patient has no shortness of breath or increased work of breathing. Does report chest congestion and cough worsened when in the supine position. Chest x-ray is unremarkable and room air saturation is greater than 95%. Additionally, she does have a petechial rash on bilateral antecubital fossa and lateral aspects of the trunk. There is no oral pharyngeal petechiae and patient is not experiencing hematuria, epistaxis, or hematochezia. Laboratory studies were reviewed and are unremarkable. Patient will be discharged home with an oral steroid and instructed to take an antihistamine for itching discomfort. Encou raged to follow up with her PCP via telephone or video visit in the next 1-2 days. Return parameters were discussed in detail. Patient verbalizes understanding and agrees with this plan. - Lab Data Result diagrams: 02/22/21 16:51 02/22/21 16:51 Lab Results 02/22/21 02/22/21 02/22/21 Range/Units 16:51 16:51 16:51 WBC 4.5 (3.8-10.6) k/uL RBC 4.98 (3.80-5.40) m/uL Hgb 12.4 (11.4-16.0) gm/dL Hct 39.6 (34.0-46.0) % MCV 79.7 L (80.0-100.0) fL MCH 24.9 L (25.0-35.0) pg MCHC 31.2 (31.0-37.0) g/dL RDW 14.2 (11.5-15.5) % Plt Count 349 (150-450) k/uL MPV 7.8 Neutrophils % 57 % Lymphocytes % 30 % Monocytes % 7 % Eosinophils % 2 % Basophils % 0 % Neutrophils # 2.6 (1.3-7.7) k/uL Lymphocytes # 1.4 (1.0-4.8) k/uL Monocytes # 0.3 (0-1.0) k/uL Eosinophils # 0.1 (0-0.7) k/uL Basophils # 0.0 (0-0.2) k/uL Hypochromasia Slight ESR 22 H (0-20) mm/hr PT 9.8 (9.0-12.0) sec INR 0.9 (<1.2) APTT 23.7 (22.0-30.0) sec Sodium 140 (137-145) mmol/L Potassium 4.1 (3.5-5.1) mmol/L Chloride 106 (98-107) mmol/L Carbon Dioxide 26 (22-30) mmol/L Anion Gap 8 mmol/L BUN 9 (7-17) mg/dL Creatinine 0.96 (0.52-1.04) mg/dL Est GFR (CKD-EPI)AfAm 89 (>60 ml/min/1.73 sqM) Est GFR (CKD-EPI)NonAf 77 (>60 ml/min/1.73 sqM) Glucose 91 (74-99) mg/dL Calcium 8.9 (8.4-10.2) mg/dL Total Bilirubin 0.3 (0.2-1.3) mg/dL AST 19 (14-36) U/L ALT 11 (4-34) U/L Alkaline Phosphatase 87 (38-126) U/L Total Protein 8.2 (6.3-8.2) g/dL Albumin 4.3 (3.5-5.0) g/dL - Radiology Data Radiology results: report reviewed, image reviewed Two-view chest x-ray was obtained. Report was reviewed in its entirety. Impression per Dr. Mcneil is no acute cardiopulmonary process. Disposition Clinical Impression: Rash associated with COVID-19 Disposition: HOME SELF-CARE Condition: Stable Instructions (If sedation given, give patient instructions): Coronavirus Disease 2019 (COVID-19), Acute Rash (ED) Additional Instructions: Take steroid daily. May alternate tylenol and motrin for fever and/or headache related to COVID. Follow up with your PCP for a recheck via telephone or video visit. Return to the emergency department with any new, worsening, or concerning symptoms. Prescriptions: predniSONE 50 mg PO DAILY #4 tab Is patient prescribed a controlled substance at d/c from ED?: No Referrals: Héctor Herr MD [Primary Care Provider] - 1-2 days
[2021-02-22 17:16] LABS: Basophils % (A) 0 %; Eosinophils # (A) 0.1 k/uL (0-0.7); Eosinophils % (A) 2 %; HCT 39.6 % (34.0-46.0); HGB 12.4 gm/dL (11.4-16.0); Hypochromasia Slight; Lymphocytes # (A) 1.4 k/uL (1.0-4.8); Lymphocytes % (A) 30 %; MCH 24.9 pg (25.0-35.0); MCHC 31.2 g/dL (31.0-37.0); MCV 79.7 fL (80.0-100.0); Mean Platelet Volume 7.8; Monocytes # (A) 0.3 k/uL (0-1.0); Monocytes % (A) 7 %; Neutrophils # (A) 2.6 k/uL (1.3-7.7); Neutrophils % (A) 57 %; Platelet Count 349 k/uL (150-450); RBC 4.98 m/uL (3.80-5.40); RDW 14.2 % (11.5-15.5); WBC 4.5 k/uL (3.8-10.6)
--- NOTE | 2021-02-22 17:16 | XR ---
EXAMINATION TYPE: XR chest 2V DATE OF EXAM: 02/22/2021 COMPARISON: NONE HISTORY: Cough. TECHNIQUE: Frontal and lateral views of the chest are obtained. FINDINGS: There is no focal air space opacity, pleural effusion, or pneumothorax seen. The cardiac silhouette size is within normal limits. The osseous structures are intact. IMPRESSION: No acute cardiopulmonary process.
[2021-02-22 17:18] LABS: Albumin 4.3 g/dL (3.5-5.0); Calcium 8.9 mg/dL (8.4-10.2); Potassium 4.1 mmol/L (3.5-5.1); Total Bilirubin 0.3 mg/dL (0.2-1.3); Total Protein 8.2 g/dL (6.3-8.2)
[2021-02-22 17:25] LABS: INR 0.9 (<1.2); Partial Thromboplastin Time 23.7 sec (22.0-30.0); Prothrombin Time 9.8 sec (9.0-12.0)
[2021-02-22 17:39] VITALS: BP 111/75; PULSE 84; RESP 20; TEMP 98.2
[2021-02-22 18:24] LABS: Erythrocyte Sedimentation Rate 22 mm/hr (0-20)
[2021-02-22] MEDS ORDERED: predniSONE 50 MG TAB PO STA (18:36)
== END 2021-02-22 19:10 | disposition home or self-care (01) ==
LOC: EC 14:59
DX: U07.1 COVID-19 (principal); R21 Rash and other nonspecific skin eruption; Z87.891 Personal history of nicotine dependence
CPT/HCPCS: 99285; 36415; 80053; 85652; 85025; 85610; 85730; 71046; J7512

== ENCOUNTER 2021-04-06 16:45 | Emergency (ER) | payer OTHER ==
[2021-04-06] MEDS ORDERED: SODIUM CHLORIDE 0.9% 1,000 ML IV STA (17:43)
--- NOTE | 2021-04-06 17:48 | ED ---
General Adult HPI - General Chief complaint: Recheck/Abnormal Lab/Rx Stated complaint: Back Pain/ZEYNEP Time Seen by Provider: 04/06/21 17:11 Source: patient Mode of arrival: ambulatory Limitations: no limitations - History of Present Illness Initial comments: This 35-year-old female presents emergency department with shortness of breath, cough, and nasal congestion that began on Tuesday morning. Patient states she was diagnosed with COVID-19 one month. Patient states she had a Covid symptoms occur cough, congestion, runny nose until 03/25/2021 where she has felt back to her normal self and improved up until Tuesday when all the symptoms began. Sahra ent states she has been taking vitamin C but states she has not taken any Tylenol or Motrin really any other symptoms. Patient denies any chest pain, abdominal pain, nausea, fever, mucus production, vomiting, headache, vision changes, change in bowel or bladder, headedness, dizziness, hemoptysis, h ematochezia. - Related Data Home Medications Medication Instructions Recorded Confirmed Ergocalciferol [Vitamin D2] 100,000 unit PO Q30D 09/20/19 04/06/21 Ferrous Sulfate [Feosol] 325 mg PO TID 09/20/19 04/06/21 Folic Acid 1 mg PO DAILY 09/20/19 04/06/21 Previous Rx's Medication Instructions Recorded Albuterol Sulfate [Albuterol 1 - 2 puff PO Q4-6H #8.5 gm 04/07/21 Sulfate Hfa] Allergies Allergy/AdvReac Type Severity Reaction Status Date / Time No Known Allergies Allergy Verified 04/06/21 19:27 Review of Systems ROS Statement: Those systems with pertinent positive or pertinent negative responses have been documented in the HPI. ROS Other: All systems not noted in ROS Statement are negative. Past Medical History Past Medical History: No Reported History History of Any Multi-Drug Resistant Organisms: None Reported Past Surgical History: No Surgical Hx Reported Additional Past Surgical History / Comment(s): benign tumor removed right breast Past Anesthesia/Blood Transfusion Reactions: No Reported Reaction Past Psychological History: No Psychological Hx Reported Smoking Status: Former smoker Past Alcohol Use History: Rare Past Drug Use History: None Reported General Exam Limitations: no limitations General appearance: alert, in no apparent distress Head exam: Present: atraumatic, normocephalic, other (Patient does sound like she has nasal congestion during history and physical exam, no nasal erythema or drainage noted) Eye exam: Present: normal appearance, PERRL, EOMI. Absent: conjunctival injection, nystagmus, periorbital swelling, periorbital tenderness Pupils: Present: normal accommodation ENT exam: Present: mucous membranes moist Neck exam: Present: full ROM. Absent: tenderness, meningismus, lymphadenopathy, thyromegaly Respiratory exam: Present: normal lung sounds bilaterally. Absent: respiratory distress, wheezes, rales, rhonchi, stridor, chest wall tenderness, decreased breath sounds Cardiovascular Exam: Present: regular rate, normal rhythm, normal heart sounds. Absent: systolic murmur, diastolic murmur, rubs, gallop, clicks GI/Abdominal exam: Present: soft, normal bowel sounds. Absent: distended, tenderness, guarding, rebound, rigid Extremities exam: Present: full ROM Back exam: Present: full ROM, paraspinal tenderness (Upper thoracic paraspinal tenderness to palpation or when asked to take a deep breath). Absent: CVA tenderness (R), CVA tenderness (L), vertebral tenderness Neurological exam: Present: alert, oriented X3, CN II-XII intact, normal gait Psychiatric exam: Present: normal affect, normal mood Skin exam: Present: warm, dry, intact, normal color. Absent: rash Course Vital Signs 04/06/21 04/06/21 16:48 22:34 Temperature 98.8 F 98.3 F Pulse Rate 89 72 Respiratory 18 16 Rate Blood Pressure 124/85 123/74 O2 Sat by Pulse 98 96 Oximetry EKG Findings - EKG Comments: EKG Findings:: EKG impression: Sinus rhythm with short WY intervalno change to prior. Ventricular rate 78 bpm. WY interval 108. QRS duration 84. QT/QTC 351/385. No ST elevation or depressions noted Medical Decision Making - Medical Decision Making This 35-year-old female presents emergency Department with cough, congestion, shortness of breath. Chest x-ray without any acute abnormalities. Vitals unremarkable. Labs unremarkable. Urine unremarkable. Influenza AB negative. Patient did refuse COVID-19 test. Patient likely with upper respiratory viral i nfection. Patient instructed to use albuterol inhaler as directed. Patient informed she could take [id number] nasal decongestant such as Mucinex. Instructed patient to follow up with her primary care provider in next 1-2 days. Patient did feel some improvement in her shortness of breath and cough after receiving albuterol inhaler here. Strict return precautions were discussed with patient. Patient verbally agree to plan. Patient sent home in stable condition. Case discussed with my attending, Dr. Mojica. - Lab Data Result diagrams: 04/06/21 18:05 04/06/21 18:05 Lab Results 04/06/21 04/06/21 04/06/21 Range/Units 18:05 18:05 18:05 WBC 8.1 (3.8-10.6) k/uL RBC 4.67 (3.80-5.40) m/uL Hgb 11.9 (11.4-16.0) gm/dL Hct 37.9 (34.0-46.0) % MCV 81.3 (80.0-100.0) fL MCH 25.5 (25.0-35.0) pg MCHC 31.3 (31.0-37.0) g/dL RDW 15.3 (11.5-15.5) % Plt Count 532 H (150-450) k/uL MPV 7.7 Neutrophils % 68 % Lymphocytes % 21 % Monocytes % 6 % Eosinophils % 2 % Basophils % 1 % Neutrophils # 5.5 (1.3-7.7) k/uL Lymphocytes # 1.7 (1.0-4.8) k/uL Monocytes # 0.5 (0-1.0) k/uL Eosinophils # 0.2 (0-0.7) k/uL Basophils # 0.1 (0-0.2) k/uL Hypochromasia Moderate PT 10.2 (9.0-12.0) sec INR 0.9 (<1.2) APTT 24.2 (22.0-30.0) sec D-Dimer 0.26 (<0.60) mg/L FEU Sodium 137 (137-145) mmol/L Potassium 4.2 (3.5-5.1) mmol/L Chloride 106 (98-107) mmol/L Carbon Dioxide 20 L (22-30) mmol/L Anion Gap 11 mmol/L BUN 10 (7-17) mg/dL Creatinine 0.72 (0.52-1.04) mg/dL Est GFR (CKD-EPI)AfAm >90 (>60 ml/min/1.73 sqM) Est GFR (CKD-EPI)NonAf >90 (>60 ml/min/1.73 sqM) Glucose 79 (74-99) mg/dL Plasma Lactic Acid Johnny (0.7-2.0) mmol/L Calcium 8.6 (8.4-10.2) mg/dL Total Bilirubin 0.3 (0.2-1.3) mg/dL AST 18 (14-36) U/L ALT 10 (4-34) U/L Alkaline Phosphatase 81 (38-126) U/L Troponin I (0.000-0.034) ng/mL Total Protein 7.7 (6.3-8.2) g/dL Albumin 4.0 (3.5-5.0) g/dL Urine Color Urine Appearance (Clear) Urine pH (5.0-8.0) Ur Specific [place] (1.001-1.035) Urine Protein (Negative) Urine Glucose (UA) (Negative) Urine Ketones (Negative) Urine Blood (Negative) Urine Nitrite (Negative) Urine Bilirubin (Negative) Urine Urobilinogen (<2.0) mg/dL Ur Leukocyte Esterase (Negative) Influenza Type A RNA (Not Detectd) Influenza Type B (PCR) (Not Detectd) 04/06/21 04/06/21 04/06/21 Range/Units 18:05 18:05 19:50 WBC (3.8-10.6) k/uL RBC (3.80-5.40) m/uL Hgb (11.4-16.0) gm/dL Hct (34.0-46.0) % MCV (80.0-100.0) fL MCH (25.0-35.0) pg MCHC (31.0-37.0) g/dL RDW (11.5-15.5) % Plt Count (150-450) k/uL MPV Neutrophils % % Lymphocytes % % Monocytes % % Eosinophils % % Basophils % % Neutrophils # (1.3-7.7) k/uL Lymphocytes # (1.0-4.8) k/uL Monocytes # (0-1.0) k/uL Eosinophils # (0-0.7) k/uL Basophils # (0-0.2) k/uL Hypochromasia PT (9.0-12.0) sec INR (<1.2) APTT (22.0-30.0) sec D-Dimer (<0.60) mg/L FEU Sodium (137-145) mmol/L Potassium (3.5-5.1) mmol/L Chloride (98-107) mmol/L Carbon Dioxide (22-30) mmol/L Anion Gap mmol/L BUN (7-17) mg/dL Creatinine (0.52-1.04) mg/dL Est GFR (CKD-EPI)AfAm (>60 ml/min/1.73 sqM) Est GFR (CKD-EPI)NonAf (>60 ml/min/1.73 sqM) Glucose (74-99) mg/dL Plasma Lactic Acid Johnny 1.0 (0.7-2.0) mmol/L Calcium (8.4-10.2) mg/dL Total Bilirubin (0.2-1.3) mg/dL AST (14-36) U/L ALT (4-34) U/L Alkaline Phosphatase (38-126) U/L Troponin I <0.012 (0.000-0.034) ng/mL Total Protein (6.3-8.2) g/dL Albumin (3.5-5.0) g/dL Urine Color Light Yellow Urine Appearance Clear (Clear) Urine pH 6.0 (5.0-8.0) Ur Specific [place] 1.013 (1.001-1.035) Urine Protein Negative (Negative) Urine Glucose (UA) Negative (Negative) Urine Ketones Negative (Negative) Urine Blood Negative (Negative) Urine Nitrite Negative (Negative) Urine Bilirubin Negative (Negative) Urine Urobilinogen <2.0 (<2.0) mg/dL Ur Leukocyte Esterase Negative (Negative) Influenza Type A RNA (Not Detectd) Influenza Type B (PCR) (Not Detectd) 04/06/21 Range/Units 21:03 WBC (3.8-10.6) k/uL RBC (3.80-5.40) m/uL Hgb (11.4-16.0) gm/dL Hct (34.0-46.0) % MCV (80.0-100.0) fL MCH (25.0-35.0) pg MCHC (31.0-37.0) g/dL RDW (11.5-15.5) % Plt Count (150-450) k/uL MPV Neutrophils % % Lymphocytes % % Monocytes % % Eosinophils % % Basophils % % Neutrophils # (1.3-7.7) k/uL Lymphocytes # (1.0-4.8) k/uL Monocytes # (0-1.0) k/uL Eosinophils # (0-0.7) k/uL Basophils # (0-0.2) k/uL Hypochromasia PT (9.0-12.0) sec INR (<1.2) APTT (22.0-30.0) sec D-Dimer (<0.60) mg/L FEU Sodium (137-145) mmol/L Potassium (3.5-5.1) mmol/L Chloride (98-107) mmol/L Carbon Dioxide (22-30) mmol/L Anion Gap mmol/L BUN (7-17) mg/dL Creatinine (0.52-1.04) mg/dL Est GFR (CKD-EPI)AfAm (>60 ml/min/1.73 sqM) Est GFR (CKD-EPI)NonAf (>60 ml/min/1.73 sqM) Glucose (74-99) mg/dL Plasma Lactic Acid Johnny (0.7-2.0) mmol/L Calcium (8.4-10.2) mg/dL Total Bilirubin (0.2-1.3) mg/dL AST (14-36) U/L ALT (4-34) U/L Alkaline Phosphatase (38-126) U/L Troponin I (0.000-0.034) ng/mL Total Protein (6.3-8.2) g/dL Albumin (3.5-5.0) g/dL Urine Color Urine Appearance (Clear) Urine pH (5.0-8.0) Ur Specific [place] (1.001-1.035) Urine Protein (Negative) Urine Glucose (UA) (Negative) Urine Ketones (Negative) Urine Blood (Negative) Urine Nitrite (Negative) Urine Bilirubin (Negative) Urine Urobilinogen (<2.0) mg/dL Ur Leukocyte Esterase (Negative) Influenza Type A RNA Not Detected (Not Detectd) Influenza Type B (PCR) Not Detected (Not Detectd) Disposition Clinical Impression: Viral upper respiratory infection Disposition: HOME SELF-CARE Condition: Stable Instructions (If sedation given, give patient instructions): Upper Respiratory Infection (ED) Additional Instructions: Please follow-up with your primary care provider next 24-48 hours. Use albuterol inhaler as directed. Can take [id number] nasal johnson decongestant such as Mucinex for symptomatic relief as directed. Return to the emergency department with any new, worsening, or concerning symptoms. Is patient prescribed a controlled substance at d/c from ED?: No Referrals: Héctor Herr MD [Primary Care Provider] - 1-2 days Time of Disposition: 21:15
[2021-04-06 18:16] LABS: Basophils # (A) 0.1 k/uL (0-0.2); Basophils % (A) 1 %; Eosinophils # (A) 0.2 k/uL (0-0.7); Eosinophils % (A) 2 %; HCT 37.9 % (34.0-46.0); HGB 11.9 gm/dL (11.4-16.0); Hypochromasia Moderate; Lymphocytes # (A) 1.7 k/uL (1.0-4.8); Lymphocytes % (A) 21 %; MCH 25.5 pg (25.0-35.0); MCHC 31.3 g/dL (31.0-37.0); MCV 81.3 fL (80.0-100.0); Mean Platelet Volume 7.7; Monocytes # (A) 0.5 k/uL (0-1.0); Monocytes % (A) 6 %; Neutrophils # (A) 5.5 k/uL (1.3-7.7); Neutrophils % (A) 68 %; Platelet Count 532 k/uL (150-450); RBC 4.67 m/uL (3.80-5.40); RDW 15.3 % (11.5-15.5); WBC 8.1 k/uL (3.8-10.6)
[2021-04-06 18:25] LABS: ALT 10 U/L (4-34); AST 18 U/L (14-36); African American GFR (CKD) >90 (>60 ml/min/1.73 sqM); Alkaline Phosphatase 81 U/L (38-126); Anion Gap 11 mmol/L; Blood Urea Nitrogen 10 mg/dL (7-17); Calcium 8.6 mg/dL (8.4-10.2); Carbon Dioxide 20 mmol/L (22-30); Chloride 106 mmol/L (98-107); Glucose 79 mg/dL (74-99); Non-African American GFR(CKD) >90 (>60 ml/min/1.73 sqM); Potassium 4.2 mmol/L (3.5-5.1); Sodium 137 mmol/L (137-145); Total Bilirubin 0.3 mg/dL (0.2-1.3); Total Protein 7.7 g/dL (6.3-8.2)
[2021-04-06 18:30] LABS: INR 0.9 (<1.2)
[2021-04-06 18:31] LABS: Partial Thromboplastin Time 24.2 sec (22.0-30.0); Prothrombin Time 10.2 sec (9.0-12.0)
--- NOTE | 2021-04-06 18:58 | XR ---
EXAMINATION TYPE: XR chest 2V DATE OF EXAM: 04/06/2021 COMPARISON: 02/22/2021 HISTORY: Cough. Back pain. TECHNIQUE: 2 views FINDINGS: Heart and mediastinum are normal. Lungs are clear. Diaphragm is normal. Bony thorax appears normal. Pulmonary vascularity is normal. IMPRESSION: Normal chest. No change.
[2021-04-06 20:30] LABS: Appearance,Urine Clear (Clear); Bilirubin,Urine Negative (Negative); Blood,Urine Negative (Negative); Color,Urine Light Yellow; Glucose,Urine (UA) Negative (Negative); Ketones,Urine Negative (Negative); Leukocyte Esterase,Urine Negative (Negative); Nitrite,Urine Negative (Negative); Protein,Urine Negative (Negative); Specific Gravity,Urine 1.013 (1.001-1.035); Urobilinogen,Urine <2.0 mg/dL (<2.0)
[2021-04-06] MEDS ORDERED: ALBUTEROL HFA INHALER INHALATION STA ×2 (21:26→22:27)
[2021-04-06 22:35] VITALS: BP 123/74; PULSE 72; RESP 16; TEMP 98.3
== END 2021-04-06 22:36 | disposition home or self-care (01) ==
LOC: EC 16:45
DX: J06.9 Acute upper respiratory infection, unspecified (principal); Z87.891 Personal history of nicotine dependence
CPT/HCPCS: 36415; 71046; 80053; 81003; 83605; 84484; 85025; 85379; 85610; 85730; 87502; 93005; 96360; 99285

== ENCOUNTER 2021-09-23 10:43 | Emergency (ER) | payer OTHER ==
[2021-09-23] MEDS ORDERED: SODIUM CHLORIDE 0.9% 1,000 ML IV STA (11:34)
[2021-09-23 11:48] LABS: Basophils # (A) 0.1 k/uL (0-0.2); Basophils % (A) 1 %; Eosinophils # (A) 0.2 k/uL (0-0.7); Eosinophils % (A) 3 %; HGB 11.7 gm/dL (11.4-16.0); Hypochromasia Moderate; Lymphocytes # (A) 1.6 k/uL (1.0-4.8); Lymphocytes % (A) 20 %; MCH 23.7 pg (25.0-35.0); MCHC 30.8 g/dL (31.0-37.0); Mean Platelet Volume 7.8; Microcytosis Slight; Monocytes # (A) 0.4 k/uL (0-1.0); Monocytes % (A) 5 %; Neutrophils # (A) 5.6 k/uL (1.3-7.7); Neutrophils % (A) 71 %; Platelet Count 565 k/uL (150-450); RBC 4.93 m/uL (3.80-5.40); RDW 15.2 % (11.5-15.5)
[2021-09-23 12:03] LABS: ALT 10 U/L (4-34); AST 17 U/L (14-36); African American GFR (CKD) >90 (>60 ml/min/1.73 sqM); Albumin 4.2 g/dL (3.5-5.0); Alkaline Phosphatase 86 U/L (38-126); Amylase 58 U/L (30-110); Anion Gap 13 mmol/L; Blood Urea Nitrogen 5 mg/dL (7-17); Calcium 9.1 mg/dL (8.4-10.2); Carbon Dioxide 22 mmol/L (22-30); Chloride 106 mmol/L (98-107); Glucose 67 mg/dL (74-99); Lipase 76 U/L (23-300); Non-African American GFR(CKD) >90 (>60 ml/min/1.73 sqM); Potassium 3.9 mmol/L (3.5-5.1); Sodium 141 mmol/L (137-145); Total Bilirubin 0.2 mg/dL (0.2-1.3); Total Protein 7.7 g/dL (6.3-8.2)
--- NOTE | 2021-09-23 12:08 | ED ---
Abdominal Pain HPI - General Chief Complaint: Abdominal Pain Stated Complaint: abd pain Time Seen by Provider: 09/23/21 10:56 Source: patient, RN notes reviewed Mode of arrival: ambulatory Limitations: no limitations - History of Present Illness Initial Comments: 36-year-old female presents emergency Department chief complaint abdominal pain. Patient states she's been having worsening symptoms. States she gets very bloated, distended lower abdomen. Patient states that she has pressure she denies significant change in her bowel habits. Denies any dysuria hematuria she states that seems to worsen throughout the day and variant of which she eats. She states there is a fairly healthy patient states that she drinks large amount of fluids secondary to being in a hot work environment. - Related Data Home Medications Medication Instructions Recorded Confirmed Folic Acid 1 mg PO DAILY 09/20/19 09/23/21 Allergies Allergy/AdvReac Type Severity Reaction Status Date / Time No Known Allergies Allergy Verified 09/23/21 12:21 Review of Systems ROS Statement: Those systems with pertinent positive or pertinent negative responses have been documented in the HPI. ROS Other: All systems not noted in ROS Statement are negative. Past Medical History Past Medical History: No Reported History Additional Past Medical History / Comment(s): anemia History of Any Multi-Drug Resistant Organisms: None Reported Past Surgical History: No Surgical Hx Reported Additional Past Surgical History / Comment(s): benign tumor removed right breast Past Anesthesia/Blood Transfusion Reactions: No Reported Reaction Past Psychological History: No Psychological Hx Reported Smoking Status: Former smoker Past Alcohol Use History: Rare Past Drug Use History: None Reported General Exam Limitations: no limitations General appearance: alert, in no apparent distress Head exam: Present: atraumatic, normocephalic, normal inspection Eye exam: Present: normal appearance, PERRL, EOMI. Absent: scleral icterus, conjunctival injection, periorbital swelling Respiratory exam: Present: normal lung sounds bilaterally. Absent: respiratory distress, wheezes, rales, rhonchi, stridor Cardiovascular Exam: Present: regular rate, normal rhythm, normal heart sounds. Absent: systolic murmur, diastolic murmur, rubs, gallop, clicks GI/Abdominal exam: Present: soft, tenderness, normal bowel sounds. Absent: distended, guarding, rebound, rigid Back exam: Absent: CVA tenderness (R), CVA tenderness (L) Neurological exam: Present: alert. Absent: motor sensory deficit Skin exam: Present: warm, dry, intact, normal color. Absent: rash Course Vital Signs 09/23/21 10:44 Temperature 98.0 F Pulse Rate 80 Respiratory 20 Rate Blood Pressure 126/93 O2 Sat by Pulse 100 Oximetry Medical Decision Making - Medical Decision Making 36-year-old female presented from for abdominal pain and bloating. Patient has redundant colon, narrowing of her colon and multiple gallstones seenon cT. Patient will follow-up with outpatient surgery return parameters were discussed. - Lab Data Result diagrams: 09/23/21 11:35 09/23/21 11:35 Lab Results 09/23/21 09/23/21 09/23/21 Range/Units 11:35 11:35 11:35 WBC 8.0 (3.8-10.6) k/uL RBC 4.93 (3.80-5.40) m/uL Hgb 11.7 (11.4-16.0) gm/dL Hct 38.0 (34.0-46.0) % MCV 77.0 L (80.0-100.0) fL MCH 23.7 L (25.0-35.0) pg MCHC 30.8 L (31.0-37.0) g/dL RDW 15.2 (11.5-15.5) % Plt Count 565 H (150-450) k/uL MPV 7.8 Neutrophils % 71 % Lymphocytes % 20 % Monocytes % 5 % Eosinophils % 3 % Basophils % 1 % Neutrophils # 5.6 (1.3-7.7) k/uL Lymphocytes # 1.6 (1.0-4.8) k/uL Monocytes # 0.4 (0-1.0) k/uL Eosinophils # 0.2 (0-0.7) k/uL Basophils # 0.1 (0-0.2) k/uL Hypochromasia Moderate Microcytosis Slight Sodium 141 (137-145) mmol/L Potassium 3.9 (3.5-5.1) mmol/L Chloride 106 (98-107) mmol/L Carbon Dioxide 22 (22-30) mmol/L Anion Gap 13 mmol/L BUN 5 L (7-17) mg/dL Creatinine 0.64 (0.52-1.04) mg/dL Est GFR (CKD-EPI)AfAm >90 (>60 ml/min/1.73 sqM) Est GFR (CKD-EPI)NonAf >90 (>60 ml/min/1.73 sqM) Glucose 67 L (74-99) mg/dL Calcium 9.1 (8.4-10.2) mg/dL Total Bilirubin 0.2 (0.2-1.3) mg/dL AST 17 (14-36) U/L ALT 10 (4-34) U/L Alkaline Phosphatase 86 (38-126) U/L Total Protein 7.7 (6.3-8.2) g/dL Albumin 4.2 (3.5-5.0) g/dL Amylase 58 (30-110) U/L Lipase 76 (23-300) U/L HCG, Qual Not Detected Disposition Clinical Impression: Redundant colon, Gallstones Disposition: HOME SELF-CARE Condition: Stable Instructions (If sedation given, give patient instructions): Gallstones (ED), Colon Stricture (DC) Additional Instructions: Please return to the Emergency Department if symptoms worsen or any other concerns. Is patient prescribed a controlled substance at d/c from ED?: No Referrals: Héctor Herr MD [Primary Care Provider] - 1-2 days Neal Allen MD [STAFF PHYSICIAN] - 1-2 days Time of Disposition: 13:50
--- NOTE | 2021-09-23 13:34 | CT ---
EXAMINATION TYPE: CT abdomen pelvis w con DATE OF EXAM: 09/23/2021 COMPARISON: 08/26/2013 HISTORY: 36-year-old female Bloating and pain TECHNIQUE: Contiguous axial scanning of the abdomen and pelvis following administration of 100 ml Iso rashida 300 IV contrast. Delayed images through the kidneys and coronal/sagittal reconstructions perform ed. CT DLP: 751.2 mGycm Automated exposure control for dose reduction was used. FINDINGS: Heart normal size without pericardial effusion. Lung bases clear without pleural effusion. Small hiatal hernia. No focal liver lesion or biliary ductal dilatation. Portal venous system is patent. Gallbladder is nondistended but suspect numerous calculi filling the lumen of the gallbladder, larges t is calcified measuring 1.0 cm. The adrenal glands, kidneys, spleen with hilar splenule, pancreas within normal limits. Prominent fluid-filled small bowel loops mid to lower abdomen and pelvis. No dilated small bowel, flu id, or free air. No mesenteric or retroperitoneal lymphadenopathy. Normal appendix. Mild overall stool burden in the right hemicolon. There is a redundant splenic flexure of the colon which extends superiorly making a nearly full 360 degree counterclockwise turn before coursing inferi tarun for second 360 degree turn in a clockwise direction. The upper descending colon here is narrowed , refer to axial image 17 and coronal image 29 but without any inflammatory change or obstruction. Mild circumferential bladder wall thickening. A tampon is present. Retroverted uterus. Both ovaries a re visualized. There is a 2.4 cm dominant follicle or functional cyst in the left ovary. No abnormal fluid collection the pelvis or pelvic lymphadenopathy. No osseous destructive process. IMPRESSION: 1. THE SPLENIC FLEXURE OF THE COLON IS MARKEDLY REDUNDANT. IT MAKES TWO 360 DEGREE TURNS; THE UPPER D ESCENDING COLON IS NARROWED (CORONAL IMAGE 29) BUT WITHOUT ANY INFLAMMATORY OR OBSTRUCTIVE CHANGES SE EN. THIS MAY BE AN INCIDENTAL FINDING. QUERY ANY LOCALIZING LEFT UPPER QUADRANT SYMPTOMS. 2. PROMINENT FLUID-FILLED SMALL BOWEL LOOPS MID AND LOWER ABDOMEN AND PELVIS PROBABLY TRANSIENT. CONS IDER REGIONAL ILEUS OR ENTERITIS. 3. MILD CIRCUMFERENCE OF BLADDER WALL THICKENING. CORRELATE TO EXCLUDE CYSTITIS. 4. SMALL HIATAL HERNIA. 5. NUMEROUS SMALL GALLSTONES.
[2021-09-23 14:29] VITALS: BP 117/98; PULSE 69; RESP 18; TEMP 97.8
== END 2021-09-23 14:40 | disposition home or self-care (01) ==
LOC: EC 10:43
DX: K80.20 Calculus of gallbladder without cholecystitis without obstruction (principal); Q43.8 Other specified congenital malformations of intestine; Z87.891 Personal history of nicotine dependence
CPT/HCPCS: 99284 ×2; 96360 ×2; 96361 ×2; 36415; 80053; 82150; 83690; 85025; 84703; 74177; Q9967

== ENCOUNTER 2021-10-13 06:16 | Day surgery (SDC) | payer OTHER ==
[~2021-10-13 06:16] MED LIST changes: +ACETAMINOPHEN TAB 500 MG TAB PO PRN; -DEXAMETHASONE SOD PHOSPHATE 10 MG/ML 1 ML VIAL IV ONE; +DEXAMETHASONE SOD PHOSPHATE 4 MG/ML 1 ML VIAL IV ONE; -HEPARIN SODIUM,PORCINE 5,000 UNIT/ML 1 ML VIAL SQ ONE; +HEPARIN SODIUM,PORCINE/PF 5,000 UNIT/0.5 ML SYRINGE SQ PRN; +LIDOCAINE 1% (10MG/ML) FOR IV START INTRADERMA PRN; -LIDOCAINE 1% 20 ML VIAL (10MG/ML) FOR IV START INTRADERMA PRN; -MIDAZOLAM 2 MG/2 ML VIAL IV PRN; +SCOPOLAMINE 1 MG/72 HR PATCH TRANSDERM ONE; -SCOPOLAMINE 1.5MG/72HR PATCH TRANSDERM ONE
[2021-10-13] MEDS ORDERED: GLYCOPYRROLATE 0.2 MG/ML 2 ML VIAL ONE (07:49)
[2021-10-13] MEDS ORDERED: MIDAZOLAM 2 MG/2 ML VIAL ONE (07:49)
[2021-10-13] MEDS ORDERED: LIDOCAINE 2% INJ 20 MG/ML (2 ML VIAL) ONE (07:49)
[2021-10-13] MEDS ORDERED: PROPOFOL 10 MG/ML 20 ML VIAL IV ONE (07:49)
[2021-10-13] MEDS ORDERED: SUCCINYLCHOLINE CHLORIDE 200 MG/10 ML VIAL IV ONE (07:49)
[2021-10-13] MEDS ORDERED: fentaNYL (PF) 50 MCG/ML 2 ML AMP ONE (07:49)
[2021-10-13] MEDS ORDERED: KETOROLAC 15 MG/ML 1 ML VIAL ONE (07:49)
[2021-10-13] MEDS ORDERED: NEOSTIGMINE 1 MG/ML 10 ML VIAL ONE (07:49)
[2021-10-13] MEDS ORDERED: ROCURONIUM 10 MG/ML (5 ML VIAL) IV ONE (07:49)
[2021-10-13] MEDS ORDERED: BUPIVACAIN-EPI 0.25%-1:200,000 30 ML VIAL SQ ONE ×2 (08:14)
--- NOTE | 2021-10-13 08:50 | P.GSHP ---
History of Present Illness H&P Date: 10/13/21 Chief Complaint: Right upper quadrant pain This a 36-year-old female who presents today for laparoscopic cholecystectomy. Patient's complaints of right upper quadrant pain. Her recent CAT scan shows thickening of the gallbladder wall. Consistent with chronic cholecystitis Past Medical History Past Medical History: No Reported History Additional Past Medical History / Comment(s): hx. anemia, gallstones, redundant colon, constipation History of Any Multi-Drug Resistant Organisms: None Reported Past Surgical History: Breast Surgery Additional Past Surgical History / Comment(s): benign tumor removed right breast Past Anesthesia/Blood Transfusion Reactions: No Reported Reaction Smoking Status: Former smoker - Past Family History Mother Family Medical History: No Reported History Medications and Allergies Home Medications Medication Instructions Recorded Confirmed Type Folic Acid 1 mg PO DAILY 09/20/19 10/13/21 History Docusate [Colace] 100 mg PO BID 10/09/21 10/13/21 History Ferrous Sulfate [Feosol] 325 mg PO TID 10/09/21 10/13/21 History Purelax 1 tsp PO DAILY 10/09/21 10/13/21 History Allergies Allergy/AdvReac Type Severity Reaction Status Date / Time control pill AdvReac headache Uncoded 10/13/21 06:48 Surgical - Exam Vital Signs Temp Pulse Resp BP Pulse Ox 97.4 F L 73 16 127/80 100 10/13/21 06:53 10/13/21 06:53 10/13/21 06:53 10/13/21 06:53 10/13/21 06:53 - General well developed, well nourished, no distress - Eyes PERRL - ENT normal pinna - Neck no masses - Respiratory normal expansion - Cardiovascular Rhythm: regular - Abdomen Abdomen: soft, non tender Assessment and Plan Assessment: Chronically status. We'll perform laparoscopic cholecystectomy
--- NOTE | 2021-10-13 08:51 | P.OP ---
Date of Procedure: 10/13/21 Preoperative Diagnosis: Chronic cholecystitis Postoperative Diagnosis: Chronic cholecystitis Procedure(s) Performed: Laparoscopic cholecystectomy Anesthesia: INDRA Surgeon: Neal Allen Estimated Blood Loss (ml): 5 Pathology: other (Gallbladder) Condition: stable Disposition: PACU Description of Procedure: The patient was placed on the operating table. The patient received a general endotracheal tube anesthesia. The patients abdomen was prepped and draped in the usual sterile fashion. Through an infraumbilical stab incision, the fascia of the anterior abdominal wall was grasped with a pair of Kochers and then the Veress needle was placed in the peritoneal cavity. Position of the Veress needle was confirmed with positive drop test. The abdomen was then insufflated. After adequate insufflation, the 10 mm trocar was placed in the peritoneal cavity. Following this the laparoscope was placed in the peritoneal cavity. The patient was placed in the head-up, right side up position and then a 5 mm trocar was placed in the right lateral and right subcostal position under direct visualization. A 8 mm trocar was placed in the epigastric position. The gallbladder was grasped in the fundus and infundibulum. Traction on the gallbladder was placed in the lateral and the cephalad positions. The triangle of Calot was visualized.. The cystic duct was bluntly dissected until the union of the cystic duct and common bile duct was seen. A critical view of safety was achieved. The cystic duct was then divided and sealed with the Harmonic scissors. A PDS Endoloop was then placed throughout the cystic duct stump. The cystic artery divided and sealed with the Harmonic scissors. The gallbladder was then removed from the liver bed using Harmonic scissors. The gallbladder was then extracted through the epigastric port site. Operative field was checked for any bleeding spots and Harmonic scissors was used to coagulate the liver bed. The abdomen was irrigated. The trocars were removed. The skin was closed using interrupted 3-0 Vicryl suture. Dermabond dressing were applied. The patient tolerated the procedure well.
[2021-10-13 08:52] VITALS: TEMP 96.8
[2021-10-13] MEDS ORDERED: HYDROmorphone 0.5 MG/0.5 ML SYRINGE IVP ONE (09:24)
[2021-10-13] MEDS ORDERED: LACTATED RINGERS 1,000 ML IV ONE (09:44)
[2021-10-13 10:17] VITALS: RESP 16
[2021-10-13 10:54] VITALS: BP 117/80; PULSE 72
[2021-10-13] MEDS ORDERED: ONDANSETRON 4 MG/2 ML VIAL IVP ONE (11:43)
[2021-10-13] MEDS ORDERED: ONDANSETRON 4 MG/2 ML VIAL ONE (11:43)
== END 2021-10-13 12:00 | disposition home or self-care (01) ==
LOC: OR 06:16
PROVIDERS: ATTEND Surgery
DX: K80.10 Calculus of gallbladder with chronic cholecystitis without obstruction (principal); K59.00 Constipation, unspecified; D64.9 Anemia, unspecified; Q43.8 Other specified congenital malformations of intestine; Z86.018 Personal history of other benign neoplasm; Z88.8 Allergy status to other drugs, medicaments and biological substances; Z87.891 Personal history of nicotine dependence
CPT/HCPCS: 47562; 81025; 88304; J2250; J0330; J1100; J2710; J0690; J2405; J3010; J1885; J2704; J1170; J1644; J2001

== ENCOUNTER 2021-12-02 15:55 | Emergency (ER) | payer OTHER ==
[2021-12-02 16:35] VITALS: BP 141/97; PULSE 82; RESP 14; TEMP 98.5
--- NOTE | 2021-12-02 17:04 | ED ---
Skin/Abscess/FB HPI - General Chief complaint: Skin/Abscess/Foreign Body Stated complaint: RASH Time Seen by Provider: 12/02/21 16:41 Source: patient, RN notes reviewed Mode of arrival: ambulatory Limitations: no limitations - History of Present Illness Initial comments: This is a 36-year-old female who presents to the emergency department for a rash. States that over the last 4 days, she has had a rash under both breasts. She notes that she got a new bra, but is unsure if this is related. She has never had problems with bras in the past. The rash is very itchy and painful. She has not used any opto-xgv-fxfznzb creams to try and manage this herself. She does believe that the rash may be spreading. She has not noticed any drainage or foul odors. Denies any fevers, chills, sore throat, cough, dyspnea, chest pain, palpitations, abdominal pain, nausea, vomiting, diarrhea, back pain, or headaches. MD complaint: rash Onset/Timin -: days(s) - Related Data Home Medications Medication Instructions Recorded Confirmed Folic Acid 1 mg PO DAILY 09/20/19 10/13/21 Docusate [Colace] 100 mg PO BID 10/09/21 10/13/21 Ferrous Sulfate [Feosol] 325 mg PO TID 10/09/21 10/13/21 Purelax 1 tsp PO DAILY 10/09/21 10/13/21 Previous Rx's Medication Instructions Recorded Acetaminophen Tab [Tylenol] 650 mg PO Q6H #30 tab 10/13/21 Docusate [Colace] 100 mg PO BID #20 capsule 10/13/21 Ibuprofen [Motrin] 600 mg PO Q6HR PRN #40 tab 10/13/21 oxyCODONE HCL [OxyIR] 5 mg PO Q6H PRN 3 Days #10 tab 10/13/21 Nystatin 100,000 Unit/gm Powd 1 applic TOPICAL TID #30 gm 12/02/21 [Mycostatin Powder] Allergies Allergy/AdvReac Type Severity Reaction Status Date / Time control pill AdvReac headache Uncoded 12/02/21 16:35 Review of Systems ROS Statement: Those systems with pertinent positive or pertinent negative responses have been documented in the HPI. ROS Other: All systems not noted in ROS Statement are negative. Past Medical History Past Medical History: No Reported History Additional Past Medical History / Comment(s): hx. anemia, gallstones, redundant colon, constipation History of Any Multi-Drug Resistant Organisms: None Reported Past Surgical History: Breast Surgery Additional Past Surgical History / Comment(s): benign tumor removed right breast Past Anesthesia/Blood Transfusion Reactions: No Reported Reaction Past Psychological History: No Psychological Hx Reported Smoking Status: Former smoker Past Alcohol Use History: None Reported Past Drug Use History: None Reported - Past Family History Mother Family Medical History: No Reported History General Exam Limitations: no limitations General appearance: alert, in no apparent distress Head exam: Present: atraumatic, normocephalic, normal inspection Respiratory exam: Present: normal lung sounds bilaterally. Absent: respiratory distress, wheezes, rales, rhonchi, stridor Cardiovascular Exam: Present: regular rate, normal rhythm, normal heart sounds. Absent: systolic murmur, diastolic murmur, rubs, gallop, clicks Neurological exam: Present: alert, oriented X3, CN II-XII intact Psychiatric exam: Present: normal affect, normal mood Skin exam: Present: other (Scaly erythematous rash under both breasts bilaterally with satellite lesions. No purulent discharge.) Course Vital Signs 12/02/21 16:33 Temperature 98.5 F Pulse Rate 82 Respiratory 14 Rate Blood Pressure 141/97 O2 Sat by Pulse 99 Oximetry Medical Decision Making - Medical Decision Making This is a 36-year-old female who presents to the emergency department for a rash under both breasts. Physical examination is consistent with a candidal infection. Advised the patient that this can be related to tight fitting bras/clothing and excess moisture in that area. Prescription for nystatin powder provided. Instructed her to keep the area dry and avoid any tight fitting bras or clothing that may rub on that area. She can use efuk-jwe-hcsguli antihistamines to help with the itching or Benadryl cream/spray, however she should make sure to rub this in so that it dries and does not remain wet. Also advised she avoid any cgmy-jcs-aqaawxu steroid creams such as hydrocortisone cream, as this may make the infection worse. She will follow up with her primary care provider in the next few days for reevaluation. Return precautions reviewed in depth, the patient is instructed to return to the emergency department with any new, worsening, or concerning symptoms. Patient verbalized understanding. This case was discussed in detail with the attending ED physician. Presentation, findings, and treatment plan discussed in detail as well. Disposition Clinical Impression: Candidiasis of breast Disposition: HOME SELF-CARE Instructions (If sedation given, give patient instructions): Skin Yeast Infection (ED) Additional Instructions: Return to the emergency department with any new, worsening, or concerning symp toms. Use the nystatin powder 3 times a day for 7-10 days. Keep the area dry and avoid any excess moisture, which can worsen the problem. You can use topical Benadryl to help with any itching, however you need to avoid any steroid creams such as hydrocortisone, as this can worsen the problem. Follow up with your primary care provider in 1-2 days. Prescriptions: Nystatin 100,000 Unit/gm Powd [Mycostatin Powder] 1 applic TOPICAL TID #30 gm Is patient prescribed a controlled substance at d/c from ED?: No Referrals: Héctor Herr MD [Primary Care Provider] - 1-2 days
== END 2021-12-02 17:16 | disposition home or self-care (01) ==
LOC: EC 15:55
DX: B37.9 Candidiasis, unspecified (principal); Z87.891 Personal history of nicotine dependence
CPT/HCPCS: 99282

== ENCOUNTER 2022-01-15 11:10 | Emergency (ER) | payer OTHER ==
[2022-01-15 11:14] VITALS: PULSE 80; TEMP 98.2
[2022-01-15] MEDS ORDERED: ACETAMINOPHEN TAB 325 MG TAB PO STA (11:50)
[2022-01-15] MEDS ORDERED: IBUPROFEN 600 MG TAB PO STA (11:50)
--- NOTE | 2022-01-15 12:12 | ED ---
ENT HPI - General Chief complaint: ENT Stated complaint: Sore throat, ZEYNEP Time Seen by Provider: 01/15/22 11:39 Source: patient, RN notes reviewed Mode of arrival: ambulatory Limitations: no limitations - History of Present Illness Initial comments: 36-year-old female presents emergency Department chief complaint of sore throat congestion bodyaches. Patient primarily has a sore throat states started last night going to scratchy. Patient has not taken Tylenol or Motrin. Patient denies abdominal pain denies any symptoms no sick contacts. Patient offers no complaints. Denies any difficulty swallowing - Related Data Home Medications Medication Instructions Recorded Confirmed Folic Acid 1 mg PO DAILY 09/20/19 10/13/21 Docusate [Colace] 100 mg PO BID 10/09/21 10/13/21 Ferrous Sulfate [Feosol] 325 mg PO TID 10/09/21 10/13/21 Purelax 1 tsp PO DAILY 10/09/21 10/13/21 Previous Rx's Medication Instructions Recorded Acetaminophen Tab [Tylenol] 650 mg PO Q6H #30 tab 10/13/21 Docusate [Colace] 100 mg PO BID #20 capsule 10/13/21 Ibuprofen [Motrin] 600 mg PO Q6HR PRN #40 tab 10/13/21 oxyCODONE HCL [OxyIR] 5 mg PO Q6H PRN 3 Days #10 tab 10/13/21 Nystatin 100,000 Unit/gm Powd 1 applic TOPICAL TID #30 gm 12/02/21 [Mycostatin Powder] Allergies Allergy/AdvReac Type Severity Reaction Status Date / Time control pill AdvReac headache Uncoded 12/02/21 16:35 Review of Systems ROS Statement: Those systems with pertinent positive or pertinent negative responses have been documented in the HPI. ROS Other: All systems not noted in ROS Statement are negative. Past Medical History Past Medical History: No Reported History Additional Past Medical History / Comment(s): hx. anemia, gallstones, redundant colon, constipation History of Any Multi-Drug Resistant Organisms: None Reported Past Surgical History: Breast Surgery, Cholecystectomy Additional Past Surgical History / Comment(s): benign tumor removed right breast Past Anesthesia/Blood Transfusion Reactions: No Reported Reaction Past Psychological History: No Psychological Hx Reported Smoking Status: Former smoker Past Alcohol Use History: None Reported Past Drug Use History: None Reported - Past Family History Mother Family Medical History: No Reported History General Exam Limitations: no limitations General appearance: alert, in no apparent distress Head exam: Present: atraumatic, normocephalic, normal inspection Eye exam: Present: normal appearance, PERRL, EOMI. Absent: scleral icterus, conjunctival injection, periorbital swelling ENT exam: Present: normal exam, normal oropharynx, mucous membranes moist, TM's normal bilaterally Neck exam: Present: normal inspection, full ROM. Absent: tenderness, meningismus, lymphadenopathy Respiratory exam: Present: normal lung sounds bilaterally. Absent: respiratory distress, wheezes, rales, rhonchi, stridor Cardiovascular Exam: Present: regular rate, normal rhythm, normal heart sounds. Absent: systolic murmur, diastolic murmur, rubs, gallop, clicks GI/Abdominal exam: Present: soft, normal bowel sounds. Absent: distended, tenderness, guarding, rebound, rigid Course Vital Signs 01/15/22 01/15/22 11:10 12:49 Temperature 98.2 F Pulse Rate 80 80 Respiratory 16 18 Rate Blood Pressure 131/82 124/78 O2 Sat by Pulse 100 100 Oximetry Medical Decision Making - Medical Decision Making Patient's is COVID-19 positive. Patient discharged stable. Return parameters discussed. - Lab Data Lab Results 01/15/22 01/15/22 Range/Units 11:17 11:17 Influenza Type A (PCR) Not Detected (Not Detectd) Influenza Type B (PCR) Not Detected (Not Detectd) RSV (PCR) Not Detected (Not Detectd) SARS-CoV-2 (PCR) Detected A (Not Detectd) Group A Strep (PCR) NOT DETECTED (Not Detectd) Disposition Clinical Impression: COVID-19 Disposition: HOME SELF-CARE Condition: Stable Instructions (If sedation given, give patient instructions): COVID-19 (Coronavirus Disease 2019) (ED) Additional Instructions: Please return to the Emergency Department if symptoms worsen or any other concerns. Is patient prescribed a controlled substance at d/c from ED?: No Referrals: Héctor Herr MD [Primary Care Provider] - 1-2 days Time of Disposition: 12:12
[2022-01-15 12:50] VITALS: BP 124/78; RESP 18
== END 2022-01-15 12:50 | disposition home or self-care (01) ==
LOC: EC 11:10
DX: U07.1 COVID-19 (principal); Z87.891 Personal history of nicotine dependence; Z88.8 Allergy status to other drugs, medicaments and biological substances
CPT/HCPCS: 87636; 87651; 99284; 99285

== ENCOUNTER 2022-08-15 19:59 | Emergency (ER) | payer OTHER ==
[2022-08-15 20:06] VITALS: TEMP 98.4
[2022-08-15] MEDS ORDERED: cefTRIAXone 1,000 MG VIAL (IM USE) IM STA (21:42)
[2022-08-15] MEDS ORDERED: metroNIDAZOLE 500 MG TAB PO STA ×2 (21:44→22:37)
[2022-08-15] MEDS ORDERED: DOXYCYCLINE 100 MG CAP PO STA (21:44)
[2022-08-15] MEDS ORDERED: FLUCONAZOLE 150 MG TAB PO STA (22:38)
--- NOTE | 2022-08-15 22:42 | ED ---
General Adult HPI - General Chief complaint: Urogenital Stated complaint: poss uti Time Seen by Provider: 08/15/22 20:29 Source: patient, RN notes reviewed Mode of arrival: ambulatory Limitations: no limitations - History of Present Illness Initial comments: 36-year-old female with no significant past medical history presents the emergency department with a chief complaint of exposure to STD. Patient reports that this is a 8 weeks ago she had unprotected sexual intercourse with the partner. She reports that a few days later she has had a yellow/green discharge in the company discharge. She took Monistat rfzw-jeq-hzharav last week with symptomatic relief. She denies any fever, chills, flank pain, dysuria, hematuria, vaginal bleeding, vaginal cramping. Last menstrual period was 07/24/42. - Related Data Home Medications Medication Instructions Recorded Confirmed Folic Acid 1 mg PO DAILY 09/20/19 10/13/21 Docusate [Colace] 100 mg PO BID 10/09/21 10/13/21 Ferrous Sulfate [Feosol] 325 mg PO TID 10/09/21 10/13/21 Purelax 1 tsp PO DAILY 10/09/21 10/13/21 Previous Rx's Medication Instructions Recorded Acetaminophen Tab [Tylenol] 650 mg PO Q6H #30 tab 10/13/21 Docusate [Colace] 100 mg PO BID #20 capsule 10/13/21 Ibuprofen [Motrin] 600 mg PO Q6HR PRN #40 tab 10/13/21 oxyCODONE HCL [OxyIR] 5 mg PO Q6H PRN 3 Days #10 tab 10/13/21 Nystatin 100,000 Unit/gm Powd 1 applic TOPICAL TID #30 gm 12/02/21 [Mycostatin Powder] Doxycycline [Vibramycin] 100 mg PO BID 7 Days #14 capsule 08/15/22 Allergies Allergy/AdvReac Type Severity Reaction Status Date / Time control pill AdvReac headache Uncoded 12/02/21 16:35 Review of Systems ROS Statement: Those systems with pertinent positive or pertinent negative responses have been documented in the HPI. ROS Other: All systems not noted in ROS Statement are negative. Past Medical History Past Medical History: No Reported History Additional Past Medical History / Comment(s): hx. anemia, gallstones, redundant colon, constipation History of Any Multi-Drug Resistant Organisms: None Reported Past Surgical History: Breast Surgery, Cholecystectomy Additional Past Surgical History / Comment(s): benign tumor removed right breast Past Anesthesia/Blood Transfusion Reactions: No Reported Reaction Past Psychological History: No Psychological Hx Reported Smoking Status: Former smoker Past Alcohol Use History: None Reported Past Drug Use History: None Reported - Past Family History Mother Family Medical History: No Reported History General Exam - General Exam Comments Initial Comments: General: Alert, in no acute distress Head: atraumatic normocephalic. Eyes PERRL, EOMI intact, mucous membranes moist Respiratory: Lungs clear to auscultation bilaterally Cardiovascular: Rate regular rate and rhythm Abdominal: Soft without guarding or rebound Extremities: Normal inspection with full range of motion and normal capillary refill Neuroogic: alert and oriented 3, CN II-XII intact, able to ambulate with steady gait Skin: warm dry and intact with normal color : external exam is without any rashes, lesions, erythema. Vaginal canal with thin, yellow discharge. Cervical os is visualized and is closed. There is no cervical motion tenderness for abnormal adnexal tenderness. Pelvic exam performed with Joslyn bridges RN present. Limitations: no limitations Course Vital Signs 08/15/22 08/15/22 20:01 22:56 Temperature 98.4 F Pulse Rate 85 95 Respiratory 16 18 Rate Blood Pressure 121/85 165/91 O2 Sat by Pulse 99 96 Oximetry Medical Decision Making - Medical Decision Making Was pt. sent in by a medical professional or institution ([facility] Do, LANGUAGE SPECIALIST, urgent care, hospital, or jail...) When possible be specific @ -[No] Did you speak to anyone other than the patient for history (EMS, parent, family, police, friend...)? What history was obtained from this source @ -[No] Did you review nursing and triage notes (agree or disagree)? Why? @ -[I reviewed and agree with nursing and triage notes] Were old charts reviewed (outside hosp., previous admission, EMS record, old EKG, old radiological studies, urgent care reports/EKG's, jail records)? Report findings @ -[No old charts were reviewed] Differential Diagnosis (chest pain, altered mental status, abdominal pain women, abdominal pain men, vaginal bleeding, weakness, fever, dyspnea, syncope, headache, dizziness, GI bleed, back pain, seizure, CVA, palpatations, mental health, musculoskeletal)? @ -[not applicable] EKG interpreted by me (3pts min.). @ -[As above] X-rays interpreted by me (1pt min.). @ -[None done] CT interpreted by me (1pt min.). @ -[None done] U/S interpreted by me (1pt. min.). @ -[None done] What testing was considered but not performed or refused? (CT, X-rays, U/S, labs)? Why? @ -[None] What meds were considered but not given or refused? Why? @ -[None] Did you discuss the management of the patient with other professionals (professionals i.e. , PA, LANGUAGE SPECIALIST, lab, RT, psych nurse, social science teacher, ditch tender, teacher, fire control officer, case fitter)? Give summary @ -[No] Was smoking cessation discussed for >3mins.? @ -[No] Was critical care preformed (if so, how long)? @ -[No] Were there social determinants of health that impacted care today? How? (Ho melessness, low income, unemployed, alcoholism, drug addiction, transportation, low edu. Level, literacy, decrease access to med. care, alf, rehab)? @ -[No] Was there de-escalation of care discussed even if they declined (Discuss DNR or withdrawal of care, Hospice)? DNR status @ -[No] What co-morbidities impacted this encounter? (DM, HTN, Smoking, COPD, CAD, Cancer, CVA, ARF, Chemo, Hep., AIDS, mental health diagnosis, sleep apnea, morbid obesity)? @ -[None] Was patient admitted / discharged? Hospital course, mention meds given and route, prescriptions, significant lab abnormalities, going to OR and other pertinent info. @ Discharged. This is a 36-year-old female who presents the emergency department with STD exposure. Physical exam reveals a thin yellow discharge with friable cervix. Patient will be treated prophylactically with Rocephin, doxycycline, Flagyl on the ED. Return precautions were discussed. Case discussed with DOUGLAS Olson who agrees with plan of care Undiagnosed new problem with uncertain prognosis? @ -[No] Drug Therapy requiring intensive monitoring for toxicity (Heparin, Nitro, Insulin, Cardizem)? @ -[No] Were any procedures done? @ -[No] Diagnosis/symptom? @ -Exposure to STD Acute, or Chronic, or Acute on Chronic? @ -Acute Uncomplicated (without systemic symptoms) or Complicated (systemic symptoms)? @ -Uncomplicated Side effects of treatment? @ -[No] Exacerbation, Progression, or Severe Exacerbation? @ -[No] Poses a threat to life or bodily function? How? (Chest pain, [place], [place], pneumonia, PE, COPD, DKA, ARF, appy, cholecystitis, CVA, Diverticulitis, Homicidal, Suicidal, threat to staff... and all critical care pts) @ -Low likelihood - Lab Data Lab Results 08/15/22 08/15/22 08/15/22 Range/Units 22:16 22:16 22:16 Urine Color Yellow Urine Appearance Cloudy H (Clear) Urine pH 5.5 (5.0-8.0) Ur Specific [place] 1.013 (1.001-1.035) Urine Protein Negative (Negative) Urine Glucose (UA) Negative (Negative) Urine Ketones Negative (Negative) Urine Blood Negative (Negative) Urine Nitrite Negative (Negative) Urine Bilirubin Negative (Negative) Urine Urobilinogen 2.0 (<2.0) mg/dL Ur Leukocyte Esterase Large H (Negative) Urine RBC 10 H (0-5) /hpf Urine WBC 24 H (0-5) /hpf Ur Squamous Epith Cells 9 H (0-4) /hpf Urine Bacteria Occasional H (None) /hpf Urine Mucus Occasional H (None) /hpf Urine HCG, Qual Not Detected (Not Detectd) Trichomonas Ag (Rapid) Negative (Negative) Disposition Clinical Impression: STD exposure Disposition: HOME SELF-CARE Condition: Stable Instructions (If sedation given, give patient instructions): Sexually Transmitted Diseases (ED) Additional Instructions: The nearest emergency department if symptoms worsen or persist Prescriptions: Doxycycline [Vibramycin] 100 mg PO BID 7 Days #14 capsule Is patient prescribed a controlled substance at d/c from ED?: No Referrals: Héctor Herr MD [Primary Care Provider] - 1-2 days Time of Disposition: 22:41
[2022-08-15 22:57] VITALS: BP 165/91; PULSE 95; RESP 18
[2022-08-15 23:03] LABS: Appearance,Urine Cloudy (Clear); Bacteria,Urine Occasional /hpf; Bilirubin,Urine Negative (Negative); Blood,Urine Negative (Negative); Color,Urine Yellow; Glucose,Urine (UA) Negative (Negative); Ketones,Urine Negative (Negative); Leukocyte Esterase,Urine Large (Negative); Mucus,Urine Occasional /hpf; Nitrite,Urine Negative (Negative); PH, Urine 5.5 (5.0-8.0); Protein,Urine Negative (Negative); RBC,Urine 10 /hpf (0-5); Specific Gravity,Urine 1.013 (1.001-1.035); Squamous Epithelial Cell,Urine 9 /hpf (0-4); WBC,Urine 24 /hpf (0-5)
== END 2022-08-15 22:57 | disposition home or self-care (01) ==
LOC: EC 19:59
DX: Z20.2 Contact with and (suspected) exposure to infections with a predominantly sexual mode of transmission (principal); Z87.891 Personal history of nicotine dependence; Z88.8 Allergy status to other drugs, medicaments and biological substances
CPT/HCPCS: 87491; 81001; 81025; 87808; 99283; 96372; J0696

== ENCOUNTER 2023-07-28 13:09 | Emergency (ER) | payer OTHER ==
[2023-07-28] MEDS: KETOROLAC 15 MG/ML 1 ML VIAL IVP STA (13:46)
--- NOTE | 2023-07-28 13:47 | ED ---
Skin/Abscess/FB HPI - General Chief complaint: Skin/Abscess/Foreign Body Stated complaint: R Leg Abscess Time Seen by Provider: 07/28/23 13:17 Source: patient, RN notes reviewed Mode of arrival: ambulatory Limitations: no limitations - History of Present Illness Initial comments: This is a 37-year-old female who presents to the emergency department for an abscess to the right leg. States that this appeared 2 weeks ago and seems to be getting larger. She has had an abscess before on the right shoulder area. Believes that this may have started as an ingrown hair. Denies any fever/chills. She has not gotten any drainage from this. Not currently on any antibiotics. MD complaint: abscess/boil - Related Data Home Medications Medication Instructions Recorded Confirmed Folic Acid 1 mg PO DAILY 09/20/19 10/13/21 Docusate [Colace] 100 mg PO BID 10/09/21 10/13/21 Ferrous Sulfate [Feosol] 325 mg PO TID 10/09/21 10/13/21 Purelax 1 tsp PO DAILY 10/09/21 10/13/21 Previous Rx's Medication Instructions Recorded Acetaminophen Tab [Tylenol] 650 mg PO Q6H #30 tab 10/13/21 Docusate [Colace] 100 mg PO BID #20 capsule 10/13/21 Ibuprofen [Motrin] 600 mg PO Q6HR PRN #40 tab 10/13/21 oxyCODONE HCL [OxyIR] 5 mg PO Q6H PRN 3 Days #10 tab 10/13/21 Nystatin 100,000 Unit/gm Powd 1 applic TOPICAL TID #30 gm 12/02/21 [Mycostatin Powder] Doxycycline [Vibramycin] 100 mg PO BID 7 Days #14 capsule 08/15/22 Cephalexin [Keflex] 500 mg PO Q6HR 7 Days #28 cap 07/28/23 Ibuprofen [Motrin] 800 mg PO Q8H PRN #30 tab 07/28/23 Sulfamethox-Tmp 800-160Mg [Bactrim 1 tab PO Q12HR 7 Days #14 tab 07/28/23 DS 800-160 mg] Allergies Allergy/AdvReac Type Severity Reaction Status Date / Time control pill AdvReac headache Uncoded 07/28/23 13:15 Review of Systems ROS Statement: Those systems with pertinent positive or pertinent negative responses have been documented in the HPI. ROS Other: All systems not noted in ROS Statement are negative. Past Medical History Past Medical History: No Reported History Additional Past Medical History / Comment(s): hx. anemia, gallstones, redundant colon, constipation History of Any Multi-Drug Resistant Organisms: None Reported Past Surgical History: Breast Surgery, Cholecystectomy Additional Past Surgical History / Comment(s): benign tumor removed right breast Past Anesthesia/Blood Transfusion Reactions: No Reported Reaction Past Psychological History: No Psychological Hx Reported Smoking Status: Former smoker Past Alcohol Use History: Occasional Past Drug Use History: None Reported - Past Family History Mother Family Medical History: No Reported History General Exam Limitations: no limitations General appearance: alert, in no apparent distress Head exam: Present: atraumatic, normocephalic, normal inspection Respiratory exam: Present: normal lung sounds bilaterally. Absent: respiratory distress, wheezes, rales, rhonchi, stridor Cardiovascular Exam: Present: regular rate, normal rhythm, normal heart sounds. Absent: systolic murmur, diastolic murmur, rubs, gallop, clicks Extremities exam: Present: other (Tender and fluctuant abscess over the right calf. No active drainage.) Neurological exam: Present: alert, oriented X3, CN II-XII intact Psychiatric exam: Present: normal affect, normal mood Skin exam: Present: warm, dry, intact, normal color. Absent: rash Course Vital Signs 07/28/23 07/28/23 13:12 14:49 Temperature 98.0 F 97.7 F Pulse Rate 69 71 Respiratory 18 17 Rate Blood Pressure 142/95 123/85 O2 Sat by Pulse 100 99 Oximetry Procedures - Incision & Drainage Consent Obtained: verbal consent Indication: Abscess Site: lower extremity Size (cm): 3 Anesthetic Used: lidocaine 1%, with epi Amount (mLs): 5 I&D Cleaning Method: Chloroprep Sterile Field Used?: Yes Scalpel Used: #11 Ultrasound used: No Needle Aspiration Performed?: No Irrigation Performed?: Yes I&D Drainage Obtained: Pus, Blood Loculation Noted: probing needed to break Culture Obtained?: Yes Medical Decision Making - Medical Decision Making This is a 37-year-old female who presents to the emergency department for an abscess to the right leg. Was pt. sent in by a medical professional or institution? @ -No Did you speak to anyone other than the patient for history? @ -No Did you review nursing and triage notes? @ -Yes, and I agree, it is accurate with regards to the patient's symptoms. Were old charts reviewed? @ -No Differential Diagnosis? @ -Differential Abscess: Abscess, cellulitis, insect bite, abrasion, this is not meant to be an all- inclusive list. EKG interpreted by me (3pts min.)? @ -Not obtained X-rays interpreted by me (1pt min.)? @ -Not obtained CT interpreted by me (1pt min.)? @ -Not obtained U/S interpreted by me (1pt. min.)? @ -Not obtained What testing was considered but not performed? (CT, X-rays, U/S, labs)? Why? @ -None What meds were considered but not given? Why? @ -None Did you discuss the management of the patient with other professionals? @ -No Did you reconcile home meds? @ -No Was smoking cessation discussed for >3mins.? @ -No Was critical care preformed (if so, how long)? @ -No Were there social determinants of health that impacted care today? How? (Homelessness, low income, unemployed, alcoholism, drug addiction, transportation, low edu. Level, literacy, decrease access to med. care, [facility], rehab)? @ -No Was there de-escalation of care discussed even if they declined? (Discuss DNR or withdrawal of care, Hospice)? @ -No What co-morbidities impacted this encounter? (DM, HTN, Smoking, COPD, CAD, Cancer, CVA, Hep., AIDS, mental health diagnosis, sleep apnea, morbid obesity)? @ -None Was patient admitted / discharged? @ -Discharged. 1% lidocaine with epinephrine was used to anesthetize the abscess and incision and drainage was performed. A copious amount of purulent material was expressed. Aerobic and anaerobic wound cultures were obtained. Prescription for ibuprofen, Bactrim, and Keflex provided with dosing instructions reviewed. Advised continuing with warm compresses and follow-up with her primary care provider. Undiagnosed new problem with uncertain prognosis? @ -None Drug Therapy requiring intensive monitoring for toxicity (Heparin, Nitro, Insulin, Cardizem)? @ -None Were any procedures done? @ -Incision and drainage of abscess Diagnosis/symptom? @ -Abscess Acute, or Chronic, or Acute on Chronic? @ -Acute Uncomplicated (without systemic symptoms) or Complicated (systemic symptoms)? @ -Uncomplicated Side effects of treatment? @ -None Exacerbation, Progression, or Severe Exacerbation] @ -Not applicable Poses a threat to life or bodily function? @ -No Return precautions reviewed in depth, the patient is instructed to return to the emergency department with any new, worsening, or concerning symptoms. Patient verbalized understanding. This case was discussed in detail with the attending ED physician, Dr. Morales. Presentation, findings, and treatment plan discussed in detail as well. Disposition Clinical Impression: Abscess Disposition: HOME SELF-CARE Instructions (If sedation given, give patient instructions): Abscess Incision and Drainage (ED), Abscess (ED) Additional Instructions: Return to the emergency department with any new, worsening, or concerning symptoms. Take both antibiotics as prescribed for 7 days. Alternate with ibuprofen and Tylenol as needed for pain relief. Continue to apply warm compresses. Follow up with your primary care provider in 1-2 days. Prescriptions: Sulfamethox-Tmp 800-160Mg [Bactrim DS 800-160 mg] 1 tab PO Q12HR 7 Days #14 tab Cephalexin [Keflex] 500 mg PO Q6HR 7 Days #28 cap Ibuprofen [Motrin] 800 mg PO Q8H PRN #30 tab PRN Reason: Pain Is patient prescribed a controlled substance at d/c from ED?: No Referrals: None,Stated [Primary Care Provider] - 1-2 days Time of Disposition: 14:35
[2023-07-28] MEDS: HYDROmorphone 1 MG/ML 1 ML SYRINGE IVP STA (13:50)
[2023-07-28] MEDS: LIDOCAINE 1%-EPI 1:100,000 20 ML VIAL SQ STA (14:24)
[2023-07-28] MEDS: ACET/COD 300 MG/30 MG STARTER PACK 6 TAB BTL PO STA (14:47)
[2023-07-28 15:03] VITALS: BP 123/85; PULSE 71; RESP 17; TEMP 97.7
== END 2023-07-28 15:09 | disposition home or self-care (01) ==
LOC: EC 13:09
DX: L02.415 Cutaneous abscess of right lower limb (principal); B96.89 Other specified bacterial agents as the cause of diseases classified elsewhere; Z88.8 Allergy status to other drugs, medicaments and biological substances; Z87.891 Personal history of nicotine dependence
CPT/HCPCS: 10060; 87070; 87075; 87205; 96374; 96375; 99283

== ENCOUNTER 2024-03-07 10:38 | Emergency (ER) | payer OTHER ==
--- NOTE | 2024-03-07 11:01 | ED ---
Dizziness HPI - General Chief Complaint: Dizziness Stated Complaint: dizzy, weak Time Seen by Provider: 03/07/24 10:57 Source: patient, RN notes reviewed Mode of arrival: wheelchair Limitations: no limitations - History of Present Illness Initial Comments: 38-year-old female presenting for dizziness x 1 day. 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 States she began to have vision changes and her heart "clenched". States she continues to feel very lightheaded. Endorses a recent heavy menstrual cycle, fever, and nausea over the past week however those symptoms have resolved. Denies chest pain, shortness of breath, cough, nasal congestion, abdominal pain. States she has a history of anemia and has never required a transfusion however states it is against her presybeterian to receive a blood transfusion. No other health conditions. - Related Data Home Medications Medication Instructions Recorded Confirmed No Known Home Medications 03/07/24 03/07/24 Allergies Allergy/AdvReac Type Severity Reaction Status Date / Time control pill AdvReac headache Uncoded 03/07/24 11:17 Review of Systems ROS Statement: Those systems with pertinent positive or pertinent negative responses have been documented in the HPI. ROS Other: All systems not noted in ROS Statement are negative. Past Medical History Past Medical History: No Reported History Additional Past Medical History / Comment(s): hx. anemia, gallstones, redundant colon, constipation History of Any Multi-Drug Resistant Organisms: None Reported Past Surgical History: Breast Surgery, Cholecystectomy Additional Past Surgical History / Comment(s): benign tumor removed right breast Past Anesthesia/Blood Transfusion Reactions: No Reported Reaction Past Psychological History: No Psychological Hx Reported Smoking Status: Former smoker Past Alcohol Use History: Occasional Past Drug Use History: None Reported - Past Family History Mother Family Medical History: No Reported History General Exam Limitations: no limitations General appearance: alert, in no apparent distress Head exam: Present: atraumatic, normocephalic, normal inspection Eye exam: Present: normal appearance, PERRL, EOMI. Absent: scleral icterus, conjunctival injection, periorbital swelling Respiratory exam: Present: normal lung sounds bilaterally. Absent: respiratory distress, wheezes, rales, rhonchi, stridor Cardiovascular Exam: Present: regular rate, normal rhythm, normal heart sounds. Absent: systolic murmur, diastolic murmur, rubs, gallop, clicks GI/Abdominal exam: Present: soft, normal bowel sounds. Absent: distended, tenderness, guarding, rebound, rigid Neurological exam: Present: alert, oriented X3, CN II-XII intact Psychiatric exam: Present: normal affect, normal mood Skin exam: Present: warm, dry, intact, normal color. Absent: rash Course Vital Signs 03/07/24 03/07/24 03/07/24 10:39 11:15 11:20 Temperature 98.8 F 98.8 F Pulse Rate 105 H 88 86 Respiratory 16 16 18 Rate Blood Pressure 154/108 144/101 158/98 O2 Sat by Pulse 100 99 99 Oximetry 03/07/24 03/07/24 03/07/24 12:05 13:06 14:29 Temperature 98.2 F Pulse Rate 85 85 91 Respiratory 16 18 18 Rate Blood Pressure 145/92 137/88 142/97 O2 Sat by Pulse 100 99 96 Oximetry 03/07/24 15:00 Temperature 98.8 F Pulse Rate 83 Respiratory 16 Rate Blood Pressure 147/96 O2 Sat by Pulse 98 Oximetry EKG Findings - EKG Results: EKG: interpreted by ERMD (EKG reveals normal sinus rhythm with ST changes. Ventricular rate 91 bpm, [place] interval 107, QRS duration 81, QT/QTc 317/365) Medical Decision Making - Medical Decision Making Was pt. sent in by a medical professional or institution ([facility], STAGE RIGGER, urgent care, hospital, or usp...) When possible be specific @ -No Did you speak to anyone other than the patient for history (EMS, parent, family, police, friend...)? What history was obtained from this source @ -No Did you review nursing and triage notes (agree or disagree)? Why? @ -I reviewed and agree with nursing and triage notes Were old charts reviewed (outside hosp., previous admission, EMS record, old EKG, old radiological studies, urgent care reports/EKG's, usp records)? Report findings @ -No old charts were reviewed Differential Diagnosis (chest pain, altered mental status, abdominal pain women, abdominal pain men, vaginal bleeding, weakness, fever, dyspnea, syncope, headache, dizziness, GI bleed, back pain, seizure, CVA, palpatations, mental health, musculoskeletal)? @ -Differential Dizziness: Benign paroxysmal positional Vertigo, Meniere's disease, otitis media, acoustic neuroma, vertebrobasilar insufficiency, cerebellar stroke, encephalitis, hypovolemic, arrhythmia, coronary artery syndrome, anemia, this is not meant to be an all-inclusive list EKG interpreted by me (3pts min.). @ -As above X-rays interpreted by me (1pt min.). @ -None done CT interpreted by me (1pt min.). @ -None done U/S interpreted by me (1pt. min.). @ -Progress ultrasound reveals retroverted uterus which appears mildly heterogeneous possibly indicating mild fibrotic changes otherwise no acute process What testing was considered but not performed or refused? (CT, X-rays, U/S, labs)? Why? @ -None What meds were considered but not given or refused? Why? @ -None Did you discuss the management of the patient with other professionals (professionals i.e. , PA, STAGE RIGGER, lab, RT, psych nurse, 7th grade social studies teacher, business lawyer, te acher, fisheries officer, home health care case manager)? Give summary @ -No Was smoking cessation discussed for >3mins.? @ -No Was critical care preformed (if so, how long)? @ -No Were there social determinants of health that impacted care today? How? (Homelessness, low income, unemployed, alcoholism, drug addiction, transportation, low edu. Level, literacy, decrease access to med. care, residential, rehab)? @ -No Was there de-escalation of care discussed even if they declined (Discuss DNR or withdrawal of care, Hospice)? DNR status @ -No What co-morbidities impacted this encounter? (DM, HTN, Smoking, COPD, CAD, Cancer, CVA, ARF, Chemo, Hep., AIDS, mental health diagnosis, sleep apnea, morbid obesity)? @ -None Was patient admitted / discharged? Hospital course, mention meds given and route, prescriptions, significant lab abnormalities, going to OR and other pertinent info. @ -Discharge. This is a 38-year-old female with episode of near syncope earlier today. No red flag symptoms. Initially mildly tachycardic at 105 bpm, mildly hypertensive at 154/108. Neuro examination unremarkable. Patient was provided with IV fluids. Lab work remarkable for mild leukocytosis of 13.4, hemoglobin 10.4. Urinalysis highly contaminated sample however not indicative of UTI. Urine negative. Ultrasound pelvis reveals a retroverted uterus with mild fibrotic changes otherwise no acute process. Discussed results with patient. Upon reevaluation, patient reports improvement of symptoms and feels stable for discharge. Heart rate reduces to 83 bpm, blood pressure 147/96. Appropriate return precautions and follow-up care discussed. Case was discussed with my ED attending Dr. Hou Undiagnosed new problem with uncertain prognosis? @ -No Drug Therapy requiring intensive monitoring for toxicity (Heparin, Nitro, Insulin, Cardizem)? @ -No Were any procedures done? @ -No Diagnosis/symptom? @ -Near syncope Acute, or Chronic, or Acute on Chronic? @ -Acute Uncomplicated (without systemic symptoms) or Complicated (systemic symptoms)? @ -Uncomplicated Side effects of treatment? @ -No Exacerbation, Progression, or Severe Exacerbation? @ -No Poses a threat to life or bodily function? How? (Chest pain, [place], [place], pneumonia, PE, COPD, DKA, ARF, appy, cholecystitis, CVA, Diverticulitis, Homicidal, Suicidal, threat to staff... and all critical care pts) @ -Unlikely at this time - Lab Data Result diagrams: 03/07/24 11:00 03/07/24 11:00 Lab Results 03/07/24 03/07/24 03/07/24 Range/Units 11:00 11:00 11:00 WBC 13.4 H (3.8-10.6) k/uL RBC 5.20 (3.80-5.40) m/uL Hgb 10.4 L (11.4-16.0) gm/dL Hct 34.9 (34.0-46.0) % MCV 67.2 L (80.0-100.0) fL MCH 20.1 L (25.0-35.0) pg MCHC 29.9 L (31.0-37.0) g/dL RDW 16.7 H (11.5-15.5) % Plt Count 616 H (150-450) k/uL MPV 7.8 Neutrophils % 86 % Lymphocytes % 8 % Monocytes % 4 % Eosinophils % 1 % Basophils % 0 % Neutrophils # 11.5 H (1.3-7.7) k/uL Lymphocytes # 1.1 (1.0-4.8) k/uL Monocytes # 0.5 (0-1.0) k/uL Eosinophils # 0.2 (0-0.7) k/uL Basophils # 0.0 (0-0.2) k/uL Hypochromasia Marked Anisocytosis Slight Microcytosis Marked D-Dimer (<0.60) mg/L FEU Sodium 137 (137-145) mmol/L Potassium 3.9 (3.5-5.1) mmol/L Chloride 100 (98-107) mmol/L Carbon Dioxide 23 (22-30) mmol/L Anion Gap 14 mmol/L BUN 10 (7-17) mg/dL Creatinine 0.77 (0.52-1.04) mg/dL Est GFR (CKD-EPI)AfAm >90 (>60 ml/min/1.73 sqM) Est GFR (CKD-EPI)NonAf >90 (>60 ml/min/1.73 sqM) Glucose 90 (74-99) mg/dL Calcium 9.9 (8.4-10.2) mg/dL Total Bilirubin 0.4 (0.2-1.3) mg/dL AST 19 (14-36) U/L ALT 14 (4-34) U/L Alkaline Phosphatase 89 (38-126) U/L Troponin I (0.000-0.034) ng/mL Total Protein 8.6 H (6.3-8.2) g/dL Albumin 4.7 (3.5-5.0) g/dL Urine Color Urine Appearance (Clear) Urine pH (5.0-8.0) Ur Specific [place] (1.001-1.035) Urine Protein (Negative) Urine Glucose (UA) (Negative) Urine Ketones (Negative) Urine Blood (Negative) Urine Nitrite (Negative) Urine Bilirubin (Negative) Urine Urobilinogen (<2.0) mg/dL Ur Leukocyte Esterase (Negative) Urine WBC (0-5) /hpf Ur Squamous Epith Cells (0-4) /hpf Urine Mucus (None) /hpf Urine HCG, Qual (Not Detectd) Influenza Type A (PCR) Not Detected (Not Detectd) Influenza Type B (PCR) Not Detected (Not Detectd) RSV (PCR) Not Detected (Not Detectd) SARS-CoV-2 (PCR) Not Detected (Not Detectd) 01/29/25 01/29/25 01/29/25 Range/Units 11:00 11:00 11:00 WBC (3.8-10.6) k/uL RBC (3.80-5.40) m/uL Hgb (11.4-16.0) gm/dL Hct (34.0-46.0) % MCV (80.0-100.0) fL MCH (25.0-35.0) pg MCHC (31.0-37.0) g/dL RDW (11.5-15.5) % Plt Count (150-450) k/uL MPV Neutrophils % % Lymphocytes % % Monocytes % % Eosinophils % % Basophils % % Neutrophils # (1.3-7.7) k/uL Lymphocytes # (1.0-4.8) k/uL Monocytes # (0-1.0) k/uL Eosinophils # (0-0.7) k/uL Basophils # (0-0.2) k/uL Hypochromasia Anisocytosis Microcytosis D-Dimer (<0.60) mg/L FEU Sodium (137-145) mmol/L Potassium (3.5-5.1) mmol/L Chloride (98-107) mmol/L Carbon Dioxide (22-30) mmol/L Anion Gap mmol/L BUN (7-17) mg/dL Creatinine (0.52-1.04) mg/dL Est GFR (CKD-EPI)AfAm (>60 ml/min/1.73 sqM) Est GFR (CKD-EPI)NonAf (>60 ml/min/1.73 sqM) Glucose (74-99) mg/dL Calcium (8.4-10.2) mg/dL Total Bilirubin (0.2-1.3) mg/dL AST (14-36) U/L ALT (4-34) U/L Alkaline Phosphatase (38-126) U/L Troponin I <0.012 (0.000-0.034) ng/mL Total Protein (6.3-8.2) g/dL Albumin (3.5-5.0) g/dL Urine Color Yellow Urine Appearance Cloudy H (Clear) Urine pH 5.5 (5.0-8.0) Ur Specific [place] 1.024 (1.001-1.035) Urine Protein 1+ H (Negative) Urine Glucose (UA) Negative (Negative) Urine Ketones Negative (Negative) Urine Blood Negative (Negative) Urine Nitrite Negative (Negative) Urine Bilirubin Negative (Negative) Urine Urobilinogen 2.0 (<2.0) mg/dL Ur Leukocyte Esterase Negative (Negative) Urine WBC 9 H (0-5) /hpf Ur Squamous Epith Cells 13 H (0-4) /hpf Urine Mucus Many H (None) /hpf Urine HCG, Qual Not Detected (Not Detectd) Influenza Type A (PCR) (Not Detectd) Influenza Type B (PCR) (Not Detectd) RSV (PCR) (Not Detectd) SARS-CoV-2 (PCR) (Not Detectd) 03/07/24 Range/Units 11:00 WBC (3.8-10.6) k/uL RBC (3.80-5.40) m/uL Hgb (11.4-16.0) gm/dL Hct (34.0-46.0) % MCV (80.0-100.0) fL MCH (25.0-35.0) pg MCHC (31.0-37.0) g/dL RDW (11.5-15.5) % Plt Count (150-450) k/uL MPV Neutrophils % % Lymphocytes % % Monocytes % % Eosinophils % % Basophils % % Neutrophils # (1.3-7.7) k/uL Lymphocytes # (1.0-4.8) k/uL Monocytes # (0-1.0) k/uL Eosinophils # (0-0.7) k/uL Basophils # (0-0.2) k/uL Hypochromasia Anisocytosis Microcytosis D-Dimer 0.30 (<0.60) mg/L FEU Sodium (137-145) mmol/L Potassium (3.5-5.1) mmol/L Chloride (98-107) mmol/L Carbon Dioxide (22-30) mmol/L Anion Gap mmol/L BUN (7-17) mg/dL Creatinine (0.52-1.04) mg/dL Est GFR (CKD-EPI)AfAm (>60 ml/min/1.73 sqM) Est GFR (CKD-EPI)NonAf (>60 ml/min/1.73 sqM) Glucose (74-99) mg/dL Calcium (8.4-10.2) mg/dL Total Bilirubin (0.2-1.3) mg/dL AST (14-36) U/L ALT (4-34) U/L Alkaline Phosphatase (38-126) U/L Troponin I (0.000-0.034) ng/mL Total Protein (6.3-8.2) g/dL Albumin (3.5-5.0) g/dL Urine Color Urine Appearance (Clear) Urine pH (5.0-8.0) Ur Specific [place] (1.001-1.035) Urine Protein (Negative) Urine Glucose (UA) (Negative) Urine Ketones (Negative) Urine Blood (Negative) Urine Nitrite (Negative) Urine Bilirubin (Negative) Urine Urobilinogen (<2.0) mg/dL Ur Leukocyte Esterase (Negative) Urine WBC (0-5) /hpf Ur Squamous Epith Cells (0-4) /hpf Urine Mucus (None) /hpf Urine HCG, Qual (Not Detectd) Influenza Type A (PCR) (Not Detectd) Influenza Type B (PCR) (Not Detectd) RSV (PCR) (Not Detectd) SARS-CoV-2 (PCR) (Not Detectd) Disposition Clinical Impression: Near syncope Disposition: HOME SELF-CARE Condition: Stable Instructions (If sedation given, give patient instructions): Dizziness (ED) Additional Instructions: Please return to the Emergency Department if symptoms worsen or any other concerns. Is patient prescribed a controlled substance at d/c from ED?: No Referrals: None,Stated [Primary Care Provider] - 1-2 days Time of Disposition: 12:59
[2024-03-07] MEDS: SODIUM CHLORIDE 0.9% 1,000 ML IV STA (11:16)
[2024-03-07 11:40] LABS: Anisocytosis Slight; Basophils % (A) 0 %; Eosinophils # (A) 0.2 k/uL (0-0.7); Eosinophils % (A) 1 %; HCT 34.9 % (34.0-46.0); HGB 10.4 gm/dL (11.4-16.0); Hypochromasia Marked; Lymphocytes # (A) 1.1 k/uL (1.0-4.8); Lymphocytes % (A) 8 %; MCH 20.1 pg (25.0-35.0); MCHC 29.9 g/dL (31.0-37.0); MCV 67.2 fL (80.0-100.0); Mean Platelet Volume 7.8; Microcytosis Marked; Monocytes # (A) 0.5 k/uL (0-1.0); Monocytes % (A) 4 %; Neutrophils # (A) 11.5 k/uL (1.3-7.7); Neutrophils % (A) 86 %; Platelet Count 616 k/uL (150-450); RDW 16.7 % (11.5-15.5); WBC 13.4 k/uL (3.8-10.6)
[2024-03-07 11:44] LABS: Appearance,Urine Cloudy (Clear); Bilirubin,Urine Negative (Negative); Blood,Urine Negative (Negative); Color,Urine Yellow; Glucose,Urine (UA) Negative (Negative); Ketones,Urine Negative (Negative); Leukocyte Esterase,Urine Negative (Negative); Mucus,Urine Many /hpf; Nitrite,Urine Negative (Negative); PH, Urine 5.5 (5.0-8.0); Protein,Urine 1+ (Negative); Specific Gravity,Urine 1.024 (1.001-1.035); Squamous Epithelial Cell,Urine 13 /hpf (0-4); WBC,Urine 9 /hpf (0-5)
[2024-03-07 11:58] LABS: ALT 14 U/L (4-34); AST 19 U/L (14-36); African American GFR (CKD) >90 (>60 ml/min/1.73 sqM); Albumin 4.7 g/dL (3.5-5.0); Alkaline Phosphatase 89 U/L (38-126); Anion Gap 14 mmol/L; Blood Urea Nitrogen 10 mg/dL (7-17); Calcium 9.9 mg/dL (8.4-10.2); Carbon Dioxide 23 mmol/L (22-30); Chloride 100 mmol/L (98-107); Glucose 90 mg/dL (74-99); Non-African American GFR(CKD) >90 (>60 ml/min/1.73 sqM); Potassium 3.9 mmol/L (3.5-5.1); Sodium 137 mmol/L (137-145); Total Bilirubin 0.4 mg/dL (0.2-1.3); Total Protein 8.6 g/dL (6.3-8.2)
[2024-03-07 12:20] LABS: Influenza A Not Detected (Not Detectd); Influenza B Not Detected (Not Detectd); RSV Not Detected (Not Detectd)
--- NOTE | 2024-03-07 14:21 | US ---
EXAMINATION TYPE: US pelvic complete DATE OF EXAM: 03/07/2024 COMPARISON: 09/20/2019 CLINICAL INDICATION: Female, 38 years old with history of pelvic pain; Heavy menses with pain since. TECHNIQUE: Transabdominal (TA). Transabdominal grayscale sonographic images of the pelvis were acquired. Transvaginal sonographic im ages were not medically necessary. Doppler imaging: Color Doppler Images were obtained. Spectral doppler images were obtained. FINDINGS: Date of LMP: Unknown EXAM MEASUREMENTS: Uterus: 61 x 5.0 x 6.0 cm Endometrial Stripe: 0.7 cm Right Ovary: 4.1 x 1.7 x 2.6 cm Left Ovary: 3.6 x 2.3 x 2.8 cm 1. Uterus: Retroverted Hypoechoic area noted left mid uterus 2. Endometrium: wnl 3. Right Ovary: wnl 4. Left Ovary: wnl Spectral, color and waveform doppler imaging shows good arterial and venous flow within the ovaries ; there is no evidence for ovarian torsion. 5. Bilateral Adnexa: wnl 6. Posterior cul-de-sac: wnl IMPRESSION: 1. Retroverted uterus which appears mildly heterogeneous possibly indicating mild fibrotic changes. 2. Normal endometrium. 3. Normal ovaries. 4. No free fluid in the cul-de-sac. 5. no significant interval change compared to the prior study dated 09/20/2019 [facility], , 03/07/2024 2:18 PM
[2024-03-07 15:00] VITALS: BP 147/96; PULSE 83; RESP 16; TEMP 98.8
== END 2024-03-07 15:06 | disposition home or self-care (01) ==
LOC: EC 10:38
DX: R55 Syncope and collapse (principal); R00.0 Tachycardia, unspecified; D72.829 Elevated white blood cell count, unspecified; Z11.52 Encounter for screening for COVID-19; Z88.8 Allergy status to other drugs, medicaments and biological substances; Z87.891 Personal history of nicotine dependence
CPT/HCPCS: 36415; 76856; 80053; 81001; 81025; 84484; 85025; 85379; 87636; 93005; 93975; 96360; 99285